=== PATIENT | female | born 1945 | race Caucasian/White ===

== ENCOUNTER → 2018-02-08 15:13 | Outpatient (CLI) | payer MEDICARE, OTHER, SELFPAY | PROVIDERS: Family Provider Family Medicine; PCP Family Medicine; Visit Provider Nurse Practitioner Adult Health | DX: R05 Cough (principal) | CPT/HCPCS: 87070; 87205 ==

== ENCOUNTER → 2018-08-10 14:21 | Outpatient (CLI) | payer MEDICARE, OTHER, SELFPAY ==
[2016-02-28 22:53] VITALS: BMI 24.0
[2018-08-10 15:26] LABS: Hematocrit 42.5 % (37-47); Hemoglobin 13.6 g/dl (12.0-15.0); Mean Corpuscular Hgb 28.6 pg (27.0-32.0); Mean Corpuscular Volume 89.3 fL (81-99); Mean Platelet Vol. 9.4 fl (6.2-12.0); Platelet Count 173 K/mm3 (150-450); RBC Distribution Width CV 14.4 % (11.6-14.6); RBC Distribution Width SD 46.5 fl (35.1-43.9); Red Blood Count 4.76 M/mm3 (4.2-5.4); White Blood Count 4.9 K/mm3 (4.4-11.0)
[2018-08-10 15:29] LABS: Scan Indicated on CBC? Y/N NO
[2018-08-10 15:49] LABS: AST(SGOT) 27 U/L (15-37); Alanine Aminotransfer ALT/SGPT 29 U/L (13-56); Albumin, Serum 4.1 g/dL (3.2-5.0); Alkaline Phosphatase 72 U/L (45-117); Anion Gap 6 (5-15); BUN 9 mg/dL (7-18); BUN/Creat Ratio 13.9 RATIO (10-20); Bilirubin, Direct 0.24 mg/dL (0.00-0.30); Calcium,Total 9.2 mg/dL (8.5-10.1); Chloride 103 mmol/L (98-107); Creatinine, Serum 0.65 mg/dL (0.55-1.02); EST Glomerular Filtration Rate 95 mL/min (>60); Est Glom Filt Rate - Afr Amer 115 mL/min (>60); Glucose 92 mg/dL (74-106); Potassium 4.2 mmol/L (3.5-5.1); Protein, Total 7.1 g/dL (6.4-8.2); Sodium Level 138 mmol/L (136-145); Thyroid Stim Hormone (TSH) 2.68 uIU/mL (0.358-3.74)
[2018-08-10 16:23] LABS: Vitamin D,25 Hydroxy 35.9 ng/mL (29.95-100.01)
== END ==
PROVIDERS: Family Provider Family Medicine; PCP Family Medicine; Referring Provider Family Medicine; Visit Provider Family Medicine
DX: M85.80 Other specified disorders of bone density and structure, unspecified site (principal); J44.9 Chronic obstructive pulmonary disease, unspecified; E88.01 Alpha-1-antitrypsin deficiency
CPT/HCPCS: 36415; 80048; 80076; 82306; 84443; 85027

== ENCOUNTER 2019-03-10 20:16 | Inpatient (IN) | payer MEDICARE, OTHER, SELFPAY ==
[2019-03-10] VITALS (8 sets, daily range): BP systolic 125–167; BP diastolic 72–105; PULSE 106–122; RESP 18–26; TEMP 36.9–38.2; O2SAT 91–97; BMI 23.9
--- NOTE | 2019-03-10 21:14 | EKG12_ITS ---
Test Reason : DYSRHYTHMIA Blood Pressure : / mmHG Vent. Rate : 111 BPM Atrial Rate : 111 BPM P-R Int : 152 ms QRS Dur : 084 ms QT Int : 320 ms P-R-T Axes : 074 058 067 degrees QTc Int : 435 ms Sinus tachycardia Otherwise normal ECG Confirmed by WENDY LAKE, ANTONIO ([id number]), design editor SHAHEEN DAILEY ([id number] on 03/15/2019 9:39:59 AM Referred By: ANDREWS Confirmed By:MRAEK NGUYEN MD
--- NOTE | 2019-03-10 21:22 | ED.VIS.GEN ---
History of Present Illness Chief Complaint: Shortness of Breath Informant: Patient Onset: Today Context: Gradual Onset Timing: Continuous Narrative: Patient is a 74-year-old female with history of alpha-1 antitrypsin deficiency presenting from home with increased shortness of breath and myalgias. Patient states her symptoms started suddenly today. She states she has body aches all over especially in her bilateral shoulders. She denies any associated cough. She denies any associated chest pain. She did have some mild nausea earlier today but no vomiting. She states she had normal bowel habits. She is concerned that she might have an infection. She is unaware of having a fever, but does feel cold. Patient denies associated abdominal pain or urinary symptoms. She states she does feel very tired. She denies any other complaints at this time. Past Medical History - Allergies and Home Meds Allergies/Adverse Reactions: Allergies latex Allergy (Verified 02/28/16 18:50) Rash Primary Care Physician: Nuno Roberts MD [Primary Care Provider] - Past Medical History: - - COPD, alpha 1 antitrypsin deficiency Surgical History: no surgical history Smoking Status: Former smoker - Family History Maternal Family History: Reports: Cancer Paternal Family History: Reports: Heart Disease Review of Systems All systems negative except as indicated General: Reports: Chills, Fever, Malaise Respiratory: Reports: Dyspnea Gastrointestinal: Reports: Nausea Physical Exam Vital Signs/Narrative: Vital Signs Temp Pulse Resp BP Pulse Ox 03/10/19 20:19 99.4 F H 112 H 26 H 146/88 H 95 03/10/19 20:17 99.4 F H 116 H 22 H 125/105 H 95 Inital Vital Signs reviewed: Yes General: Well nourished, Well developed, No Acute Distress Head: Normocephalic, Atraumatic Eyes: Perrl, EOMI ENT: Moist mucous membranes, No rhinorrhea Neck: Supple, Nontender Cardiovascular: Regular rhythm, No murmurs, Tachycardia Respiratory: Chest nontender, - - Tachypnea, diminished and coarse breath sounds bilaterally Abdomen: Soft, Nontender, Nondistended, Normal bowel sounds. Negative for: Garcia's sign Back: Nontender, Normal Inspection Extremities: Nontender, No edema Skin: Normal color, No rash Neurological: Alert, Oriented x3, Cranial nerves II-XII grossly intact, Normal Strength, Normal Sensation Psychological: Normal affect, Normal Mood Diagnostic/Tx/Re-eval Chest X-Ray - ED: 2 View, Read by ED Physician, Read by Radiologist, No Acute Disease Clinical Impression(s) from Imaging Studies Chest X-Ray 03/10/19 21:45 IMPRESSION: Severe hyperexpansion and diffuse emphysematous changes. Stable chronic fibrosis of the lingula. Negative for new consolidation, focal atelectasis or a substantial pleural effusion. Normal cardiac size. Atherosclerotic changes of the thoracic aorta. Electronically Signed: Shila Bocanegra MD at 22:07 EDT , Service support , Abdomen/Pelvis CT 03/10/19 22:44 IMPRESSION: Severe fibrotic COPD. Cholelithiasis. Distended gallbladder. Suboptimal evaluation of the GI tract without oral contrast. Cannot exclude enteritis or colitis. Electronically Signed: Lance White MD at 23:33 EDT , Service support , Laboratory Data 03/10/19 03/10/19 03/10/19 21:27 21:27 21:27 WBC 10.7 RBC 5.17 Hgb 14.5 Hct 44.7 MCV 86.5 MCH 28.0 MCHC 32.4 RDW Std Deviation 46.2 H RDW Coeff of Penny 14.6 Plt Count 161 MPV 9.4 Immature Gran % (Auto) 0.500 Neut % (Auto) 77.7 H Lymph % (Auto) 11.1 L [place] % (Auto) 10.1 H Eos % (Auto) 0.3 Baso % (Auto) 0.3 Absolute Neuts (auto) 8.3 H Absolute Lymphs (auto) 1.19 Nucleated RBC % 0 PT 13.4 INR 1.0 APTT 29.3 Sodium 140 Potassium 3.8 Chloride 103 Carbon Dioxide 31.0 Anion Gap 6 BUN 8 Creatinine 0.66 Estim Creat Clear Calc 40.83 Est GFR (MDRD) Af Amer 112 Est GFR (MDRD) Non-Af 92 BUN/Creatinine Ratio 12.0 Glucose 109 H Lactic Acid Calcium 9.6 Total Bilirubin 1.70 H AST 24 ALT 26 Alkaline Phosphatase 90 Total Protein 7.4 Albumin 4.1 Globulin 3.3 Albumin/Globulin Ratio 1.2 Urine Color Urine Clarity Urine pH Ur Specific [place] Urine Protein Urine Glucose (UA) Urine Ketones Urine Occult Blood Urine Nitrite Urine Bilirubin Urine Urobilinogen Ur Leukocyte Esterase Urine RBC Urine WBC Ur Squamous Epith Cells Urine Bacteria Urine Mucus 03/10/19 03/10/19 21:27 21:45 WBC RBC Hgb Hct MCV MCH MCHC RDW Std Deviation RDW Coeff of Penny Plt Count MPV Immature Gran % (Auto) Neut % (Auto) Lymph % (Auto) [place] % (Auto) Eos % (Auto) Baso % (Auto) Absolute Neuts (auto) Absolute Lymphs (auto) Nucleated RBC % PT INR APTT Sodium Potassium Chloride Carbon Dioxide Anion Gap BUN Creatinine Estim Creat Clear Calc Est GFR (MDRD) Af Amer Est GFR (MDRD) Non-Af BUN/Creatinine Ratio Glucose Lactic Acid 0.9 Calcium Total Bilirubin AST ALT Alkaline Phosphatase Total Protein Albumin Globulin Albumin/Globulin Ratio Urine Color Straw Urine Clarity Clear Urine pH 7.0 Ur Specific [place] 1.010 Urine Protein Negative Urine Glucose (UA) Normal Urine Ketones 5 H Urine Occult Blood 10 H Urine Nitrite Negative Urine Bilirubin Negative Urine Urobilinogen Normal Ur Leukocyte Esterase 500 H Urine RBC 0-5 SEEN Urine WBC 0-5 SEEN Ur Squamous Epith Cells 0-5 SEEN Urine Bacteria 0 SEEN Urine Mucus 0 SEEN - Rhythm Strip Rhythm Strip: Sinus Tach Rate: 111 Ectopy: None - EKG Initial EKG Interpretation: Sinus Tachycardia, - - Sinus tachycardia at a rate of 111 Normal intervals Normal axis Normal ST segments - Medical Decision Making Patient is evaluated for shortness of breath chills and myalgias. She appears nontoxic but is tachycardic and tachypneic. Patient has diminished breath sounds but otherwise has a nonfocal exam. Patient's presentation is concerning for infection and she does have a fever in the emergency room. Patient does meet sirs criteria with fever, tachycardia and tachypnea. Lactate is normal. Patient has 500 leukoesterase in the urine concerning for urinary tract infection. Urine culture and blood cultures are pending. She is given 1 L of IV fluid in the emergency room. Patient's lab work also shows an elevated total bilirubin. On repeat exam she still does not have any abdominal pain but she did report an episode of nausea earlier today. CT of the abdomen pelvis is obtained looking for renal pathology as well as any biliary pathology. Patient is instantly found to have gallstones and states she does have a history of this is been followed by Dr. Sanchez. She is not a surgical candidate secondary to her poor lung function. In addition she is not having any biliary colic at this time. Patient is ordered IV Rocephin for presumed urinary tract infection. She will be admitted for further monitoring. Patient is stable in the emergency room and stable for a general medical floor at time of disposition. She is on her baseline oxygen. Chest x-ray does not show an obvious respiratory cause. Discussed with hospitalist, Dr. Rao, who states he will order respiratory viral panel as well. ED Disposition - Plan for ED Patient: Disposition: Home or Assisted Living Diagnosis: UTI (urinary tract infection), Sepsis Referrals: Nuno Roberts MD [Primary Care Provider] -
[2019-03-10 21:44] LABS: Absolute Lymphocyte Count 1.19 X10^3/uL (0.83-4.51); Absolute Neutrophil Count 8.3 X10^3/uL (2.0-7.7); Basophil# 0.03 X10^3/uL; Basophil% 0.3 % (0-1); Eosinophil# 0.03 X10^3/uL; Eosinophils% 0.3 % (0-5); Hematocrit 44.7 % (37-47); Hemoglobin 14.5 g/dL (12.0-15.0); Lymphocyte # 1.19 X10^3/ul (4.0); Lymphocyte % 11.1 % (19-41); Mean Corp Hgb Conc 32.4 g/dL (32-36); Mean Corpuscular Volume 86.5 fL (81-99); Mean Platelet Vol. 9.4 fl (6.2-12.0); Monocyte# 1.08 X10^3/uL; Monocyte% 10.1 % (0-10); NRBC Flagged by Analyzer 0 % (0-5); Neutrophil # 8.32 X10^3/uL (2.7-7.7); Neutrophil % 77.7 % (47-70); Platelet Count 161 K/mm3 (150-450); RBC Distribution Width CV 14.6 % (11.6-14.6); RBC Distribution Width SD 46.2 fl (35.1-43.9); Red Blood Count 5.17 M/mm3 (4.2-5.4); White Blood Count 10.7 K/mm3 (4.4-11.0)
[2019-03-10] MEDS: 0.9% Normal Saline 1,000 ML 999 ML IV (21:45)
--- NOTE | 2019-03-10 21:45 | RAD_ITS ---
STUDY: X-RAY CHEST REASON FOR EXAM: Female, 74 years old. Shortness of breath and weakness. TECHNIQUE: 2 views COMPARISON: Prior chest radiograph from May 20, 2017 FINDINGS: Marked hyperexpansion and diffuse changes of bullous emphysema. Chronic fibrotic changes of the lingula. Negative for new consolidation or pleural effusion. Normal size heart. Normal mediastinum and bee. Normal visualized pulmonary arteries. There is atherosclerotic tortuosity of the aortic arch and descending thoracic aorta. There are diffuse degenerative changes of the visualized thoracic spine with increased kyphosis. Normal visualized ribs, clavicles, and shoulders. There is no demonstrated abnormality of the visualized soft tissue structures of the upper abdomen. RAD/Chest PA and Lateral IMPRESSION: Severe hyperexpansion and diffuse emphysematous changes. Stable chronic fibrosis of the lingula. Negative for new consolidation, focal atelectasis or a substantial pleural effusion. Normal cardiac size. Atherosclerotic changes of the thoracic aorta. Electronically Signed: Shila Bocanegra MD at 22:07 EDT , Service support ,
[2019-03-10 21:54] LABS: Bacteria 0 SEEN /hpf (None Seen); Mucous, Urine 0 SEEN /hpf (<or=2+)
[2019-03-10 21:56] LABS: Prothrombin Time (Protime)PT. 13.4 SECONDS (11.7-14.9)
[2019-03-10 21:57] LABS: Partial Thromboplast Time 29.3 Seconds (24.1-36.2)
[2019-03-10 21:59] LABS: Color, Urine Straw (Yellow); Glucose, Dipstick Normal (Normal); Ketone-Dipstick 5 mg/dl (Negative); Leukocyte Esterase-Dipstick 500 /ul (Negative); Nitrite-Dipstick Negative (Negative); Occult Blood-Urine 10 /ul (Negative); Protein-Dipstick Negative (Negative); Urine Bilirubin Dipstick Negative (Negative); Urine Clarity Clear (Clear); Urine Urobilinogen Normal (Normal)
[2019-03-10 22:03] LABS: ALB/GLOB Ratio 1.2 RATIO (0.9-2.4); AST(SGOT) 24 U/L (15-37); Alanine Aminotransfer ALT/SGPT 26 U/L (13-56); Albumin, Serum 4.1 g/dL (3.2-5.0); Alkaline Phosphatase 90 U/L (45-117); Anion Gap 6 (5-15); BUN 8 mg/dL (7-18); Calcium,Total 9.6 mg/dL (8.5-10.1); Chloride 103 mmol/L (98-107); Creatinine, Serum 0.66 mg/dL (0.55-1.02); EST Glomerular Filtration Rate 92 mL/min (>60); Est Glom Filt Rate - Afr Amer 112 mL/min (>60); Estimated Creatinine Clearance 40.83 ml/min; Globulin 3.3 g/dL (2.2-4.2); Glucose 109 mg/dL (74-106); Potassium 3.8 mmol/L (3.5-5.1); Protein, Total 7.4 g/dL (6.4-8.2); Sodium Level 140 mmol/L (136-145)
[2019-03-10 22:05] LABS: Red Blood Cells-Urine 0-5 SEEN /hpf (0-5); Squamous Epithelial Cells - UA 0-5 SEEN /hpf (5-10)
[2019-03-10 22:06] LABS: White Blood Cells 0-5 SEEN /hpf (0-5)
[2019-03-10 22:15] LABS: Lactic Acid 0.9 mmol/L (0.4-2.0)
--- NOTE | 2019-03-10 22:44 | CT_ITS ---
STUDY: CT ABDOMEN AND PELVIS WITH CONTRAST REASON FOR EXAM: Female, 74 years old. Elevated bilirubin. RADIATION DOSAGE (If Supplied By Facility): CTDIvol = ( 12.12 ) mGy, DLP = ( 517.93 ) mGycm TECHNIQUE: Transaxial images were obtained from the dome of the diaphragm to the symphysis pubis without oral contrast. IV Isovue 300 100 was administered. Sagittal and coronal images were reconstructed. Individualized dose optimization techniques were used for this CT. COMPARISON: None. FINDINGS: Limited views through the lower chest show evidence of severe fibrotic COPD. Normal liver. There are multiple gallstones. Normal spleen. Normal pancreas. Normal bilateral adrenal glands. Normal right kidney. Normal left kidney. Evaluation of the GI tract is limited by absence of oral contrast. Cannot exclude stomach wall thickening. No dilated loops of bowel or evidence for obstruction. Cannot exclude segmental thickening of the carranza of the small or large bowel. Cannot exclude enteritis or colitis. Moderate diffuse fecal retention. Diverticulosis without definite diverticulitis. Appendix within normal limits. Normal abdominal aorta. Normal inferior vena cava. Normal retroperitoneum. Normal urinary bladder. Normal visualized uterus. Normal abdominal wall. There are diffuse degenerative changes of the visualized lumbar spine. CT/Abdomen/Pelvis W IV Cont ONLY IMPRESSION: Severe fibrotic COPD. Cholelithiasis. Distended gallbladder. Suboptimal evaluation of the GI tract without oral contrast. Cannot exclude enteritis or colitis. Electronically Signed: Lance White MD at 23:33 EDT , Service support ,
--- NOTE | 2019-03-10 23:40 | PCM.HP.STD ---
Problem List (1) Sepsis Status: Acute (2) UTI (urinary tract infection) Status: Acute (3) Respiratory failure with hypoxia Status: Acute (4) [id number] deficiency Status: Chronic (5) COPD (chronic obstructive pulmonary disease) Status: Chronic History of Present Illness Date of Admission: 03/11/19 Chief Complaint: Shortness of breath started today The patient is a 74 year old F with multiple comorbidities including alpha-1 antitrypsin deficiency with COPD on 3 L of home oxygen came to ER with shortness of breath, respiratory distress and fever started morning on the day of admission. Patient states chest congestion with mucus but not able to bring up. She also does not have cough usually she has chronic cough. As per ER physician, she also had body aches all over, more in bilateral shoulders. No chest pain. Denies nausea vomiting or abdominal pain. Denies increased frequency, urgency or burning micturition. In ER, she was found to have temperature 100.7, 99.4 Fahrenheit, tachycardia 117 bpm, respiratory 24 pulse ox 91% on 3 L of oxygen. Chest x-ray shows mainly chronic changes of COPD with chronic fibrosis of lingula. No new consolidation. Further CT abdomen was done which shows multiple gallstones. She has history of chronic cholecystitis, first on about 8 years ago and last one perhaps more than 2 to 3 years ago, she does not remember. She was seen by Dr. Richardson in the past and deemed high risk for cholecystectomy. UA positive of LE 500, WBC 0-5 cells. Nitrite negative. No bacteria. Past Medical History Past Medical History (Chronic Problems): Chronic Problems [id number] deficiency (Chronic) COPD (chronic obstructive pulmonary disease) (Chronic) Allergies latex Allergy (Verified 02/28/16 18:50) Rash Home Medications: Ambulatory Orders Medication Instructions Recorded Albuterol Aerosols [Ventolin 2.5 mg INHALATION Q4H PRN PRN 02/28/16 Aerosols] Albuterol Inhaler [Ventolin Hfa] 1 - 2 puff INHALATION Q4H PRN PRN 02/28/16 Escitalopram Oxalate [Lexapro] 10 mg PO DAILY 02/28/16 Roflumilast [Daliresp] 500 mcg PO DAILY 02/28/16 Azithromycin 250 mg PO DAILY 03/10/19 Fluticasone/Umeclidin/Vilanter 1 inhaler INHALATION DAILY 03/10/19 [Mayte Mauricio 100-62.5-25] Surgical History: no surgical history Smoking Status: Former smoker - *Family History Maternal History Items: Cancer - Gallbladder cancer Paternal History Items: Heart Disease Review of Systems Constitutional: Reports: Chills, Fever, Malaise, Weakness HEENT: Denies: Head Aches, Sinus Congestion, Sinus Drainage Cardiovascular: Denies: Chest Pain, Palpitations Respiratory: Reports: Shortness of breath at rest, Wheezing. Denies: Cough, Sputum production Gastrointestinal: Denies: Abdominal Pain, Nausea, Vomiting Genitourinary: Denies: Dysuria, Frequency, Urgency Musculoskeletal: Denies: Joint Pain, Joint Tenderness Skin: Denies: Rash, Wounds Neurological: Denies: Numbness, Tingling, Focal weakness Psychiatric: Reports: Anxiety. Denies: Depression, Homicidal Ideations, Suicidal Ideations Hematologic/ Lymphatic: Denies: Easy Bruising, Easy Bleeding VTE Information - Inpt Only VTE Present on Admission: No VTE Mechan Device Prophylaxis: None VTE Pharm Prophylaxis ordered?: Yes Patient Problems: Active and Suspected Problems UTI (urinary tract infection) (Acute) Sepsis (Acute) - Physical Exam General: Alert, Oriented x3, Cooperative HEENT: Atraumatic, PERRLA, EOMI, Normocephalic Oral: Dry Mucosa Neck: Supple, No JVD, Negative Carotid Bruits Lungs: Diminished - Air entry severely diminished in all lung fernandez., Rhonchi, Short of Breath, Tachypneic, Wheezes Cardiovascular: Regular Rhythm, Normal S1, Normal S2, No murmurs, Tachycardic Abdomen: Bowel Sounds Present, Soft, Non Tender, Non-Distended Extremities: No edema, Capillary Refill Less than 3 Seconds Skin: No rashes, No breakdown Musculoskeletal: No Tenderness to Palpation of Joints or Extremities, Arthritic Changes Neurological: Cranial nerves II-XII grossly intact, Deep Tendon Reflexes 2+/4 and Symmetrical, Neuro grossly intact Psych/Mental Status: Normal Affect, Appropriate Vital Signs Temp Pulse Resp BP Pulse Ox 98.5 F 122 H 22 H 167/88 H 97 03/10/19 23:23 03/10/19 23:23 03/10/19 23:23 03/10/19 23:23 10/11/19 23:23 Oxygen Flow Rate (L/min) 3 Oxygen Delivery Method Room Air Weight: 135 lb Body Mass Index (BMI) 23.9 Intake and Output for Last 24 Hours 03/09/19 03/10/19 03/11/19 23:59 23:59 23:59 Intake Total 1000 / 1000 Balance 1000 / 1000 Laboratory Tests Past 24 Hrs 03/10/19 03/10/19 03/10/19 21:27 21:27 21:27 WBC 10.7 RBC 5.17 Hgb 14.5 Hct 44.7 MCV 86.5 MCH 28.0 MCHC 32.4 RDW Std Deviation 46.2 H RDW Coeff of Penny 14.6 Plt Count 161 MPV 9.4 Immature Gran % (Auto) 0.500 Neut % (Auto) 77.7 H Lymph % (Auto) 11.1 L [place] % (Auto) 10.1 H Eos % (Auto) 0.3 Baso % (Auto) 0.3 Absolute Neuts (auto) 8.3 H Absolute Lymphs (auto) 1.19 Nucleated RBC % 0 PT 13.4 INR 1.0 APTT 29.3 Sodium 140 Potassium 3.8 Chloride 103 Carbon Dioxide 31.0 Anion Gap 6 BUN 8 Creatinine 0.66 Estim Creat Clear Calc 40.83 Est GFR (MDRD) Af Amer 112 Est GFR (MDRD) Non-Af 92 BUN/Creatinine Ratio 12.0 Glucose 109 H Lactic Acid Calcium 9.6 Total Bilirubin 1.70 H AST 24 ALT 26 Alkaline Phosphatase 90 Total Protein 7.4 Albumin 4.1 Globulin 3.3 Albumin/Globulin Ratio 1.2 Urine Color Urine Clarity Urine pH Ur Specific [place] Urine Protein Urine Glucose (UA) Urine Ketones Urine Occult Blood Urine Nitrite Urine Bilirubin Urine Urobilinogen Ur Leukocyte Esterase Urine RBC Urine WBC Ur Squamous Epith Cells Urine Bacteria Urine Mucus 03/10/19 03/10/19 21:27 21:45 WBC RBC Hgb Hct MCV MCH MCHC RDW Std Deviation RDW Coeff of Penny Plt Count MPV Immature Gran % (Auto) Neut % (Auto) Lymph % (Auto) [place] % (Auto) Eos % (Auto) Baso % (Auto) Absolute Neuts (auto) Absolute Lymphs (auto) Nucleated RBC % PT INR APTT Sodium Potassium Chloride Carbon Dioxide Anion Gap BUN Creatinine Estim Creat Clear Calc Est GFR (MDRD) Af Amer Est GFR (MDRD) Non-Af BUN/Creatinine Ratio Glucose Lactic Acid 0.9 Calcium Total Bilirubin AST ALT Alkaline Phosphatase Total Protein Albumin Globulin Albumin/Globulin Ratio Urine Color Straw Urine Clarity Clear Urine pH 7.0 Ur Specific [place] 1.010 Urine Protein Negative Urine Glucose (UA) Normal Urine Ketones 5 H Urine Occult Blood 10 H Urine Nitrite Negative Urine Bilirubin Negative Urine Urobilinogen Normal Ur Leukocyte Esterase 500 H Urine RBC 0-5 SEEN Urine WBC 0-5 SEEN Ur Squamous Epith Cells 0-5 SEEN Urine Bacteria 0 SEEN Urine Mucus 0 SEEN Assessment/Plan All Active Problems UTI (urinary tract infection) (Acute) Sepsis (Acute) Respiratory failure with hypoxia (Acute) The patient is a 74 year old F with multiple comorbidities including alpha-1 antitrypsin deficiency with COPD on 3 L of home oxygen came to ER with shortness of breath, respiratory distress and fever started morning on the day of admission. Patient states chest congestion with mucus but not able to bring up. In ER, she was found to have temperature 100.7, 99.4 Fahrenheit, tachycardia 117 bpm, respiratory 24 pulse ox 91% on 3 L of oxygen. Chest x-ray shows mainly chronic changes of COPD with chronic fibrosis of lingula. No new consolidation. Further CT abdomen was done which shows multiple gallstones. She has history of chronic cholecystitis, first on about 8 years ago and last one perhaps more than 2 to 3 years ago, she does not remember. She was seen by Dr. Richardson in the past and deemed high risk for cholecystectomy. 1. SIRS (fever, tachypnea, tachycardia with borderline leukocytosis) possible secondary to COPD with viral bronchitis/UTI: Patient is being admitted on MedSurg floor. Started on IV Rocephin and Zithromax. Blood cultures x2, urine culture, respiratory panel, MRSA nasal screen, urinary antigens for Legionella and Streptococcus, sputum culture ordered. Lactic acid normal. UA positive of LE 500, WBC 0-5 cells. Nitrite negative. No bacteria. 2. Chronic hypoxic respiratory failure secondary to COPD exacerbation with history of alpha-1 antitrypsin deficiency: BiPAP if needed. ABG ordered. Currently patient is on 3 L of oxygen which is normal baseline. Previous ABG of 04/21/2016 shows 7.42/39/50. Started bronchodilator, DuoNeb, IV Solu-Medrol,, incentive spirometry and chest physiotherapy/bronchopulmonary hygiene. She follows Dr. Taylor. 3. Chronic cholelithiasis with history of chronic ascites: Patient does not have abdominal pain. CT abdomen reviewed. Follow Dr. Hu as an outpatient. 4. DVT prophylaxis: On Lovenox 40 g subcu daily. Laboratory Results 03/10/19 21:27: WBC 10.7, RBC 5.17, Hgb 14.5, Hct 44.7, MCV 86.5, MCH 28.0, MCHC 32.4, RDW Std Deviation 46.2 H, RDW Coeff of Penny 14.6, Plt Count 161, MPV 9.4, Immature Gran % (Auto) 0.500, Neut % (Auto) 77.7 H, Lymph % (Auto) 11.1 L, [place] % (Auto) 10.1 H, Eos % (Auto) 0.3, Baso % (Auto) 0.3, Absolute Neuts (auto) 8.3 H, Absolute Lymphs (auto) 1.19, Nucleated RBC % 0 03/10/19 21:27: PT 13.4, INR 1.0, APTT 29.3 03/10/19 21:27: Sodium 140, Potassium 3.8, Chloride 103, Carbon Dioxide 31.0, Anion Gap 6, BUN 8, Creatinine 0.66, Estim Creat Clear Calc 40.83, Est GFR (MDRD) Af Amer 112, Est GFR (MDRD) Non-Af 92, BUN/Creatinine Ratio 12.0, Glucose 109 H, Calcium 9.6, Total Bilirubin 1.70 H, AST 24, ALT 26, Alkaline Phosphatase 90, Total Protein 7.4, Albumin 4.1, Globulin 3.3, Albumin/Globulin Ratio 1.2 03/10/19 21:27: Lactic Acid 0.9 03/10/19 21:45: Urine Color Straw, Urine Clarity Clear, Urine pH 7.0, Ur Specific [place] 1.010, Urine Protein Negative, Urine Glucose (UA) Normal, Urine Ketones 5 H, Urine Occult Blood 10 H, Urine Nitrite Negative, Urine Bilirubin Negative, Urine Urobilinogen Normal, Ur Leukocyte Esterase 500 H, Urine RBC 0-5 SEEN, Urine WBC 0-5 SEEN, Ur Squamous Epith Cells 0-5 SEEN, Urine Bacteria 0 SEEN, Urine Mucus 0 SEEN Clinical Impression(s) from Imaging Studies Chest X-Ray 10/11/19 21:45 IMPRESSION: Severe hyperexpansion and diffuse emphysematous changes. Stable chronic fibrosis of the lingula. Negative for new consolidation, focal atelectasis or a substantial pleural effusion. Normal cardiac size. Atherosclerotic changes of the thoracic aorta. Abdomen/Pelvis CT 03/10/19 22:44 IMPRESSION: Severe fibrotic COPD. Cholelithiasis. Distended gallbladder. Suboptimal evaluation of the GI tract without oral contrast. Cannot exclude enteritis or colitis. Code Visit Inpatient E&M: 16417 Init Hosp L3
[2019-03-10] MEDS: Ceftriaxone 1 GM/50 ML BAG IV (23:59)
[2019-03-11] VITALS (13 sets, daily range): BP systolic 131–158; BP diastolic 63–91; PULSE 78–105; RESP 12–22; TEMP 36.4–37.6; O2SAT 95–98; BMI 22.3
--- NOTE | 2019-03-11 01:20 | NURSING ---
Pt will look up the last date she had the flu vaccine tomorrow. She said she is tired right now and doesn't want to do it.
[2019-03-11] MEDS: 0.9% Normal Saline 1,000 ML 75 ML IV (01:46)
[2019-03-11] MEDS: Ipratropium/Albuterol Sulfate 3 ML AMPUL.NEB INHALATION ×6 (03:45→22:17)
[2019-03-11 07:00] LABS: Bedside Glucose 102 mg/dL (70-110)
[2019-03-11 07:32] LABS: Absolute Lymphocyte Count 2.78 X10^3/uL (0.83-4.51); Basophil# 0.05 X10^3/uL; Basophil% 0.4 % (0-1); Eosinophil# 0.16 X10^3/uL; Eosinophils% 1.4 % (0-5); Hematocrit 38.6 % (37-47); Hemoglobin 12.5 g/dL (12.0-15.0); Lymphocyte # 2.78 X10^3/ul (4.0); Lymphocyte % 24.8 % (19-41); Mean Corp Hgb Conc 32.4 g/dL (32-36); Mean Corpuscular Volume 86.4 fL (81-99); Mean Platelet Vol. 9.9 fl (6.2-12.0); Monocyte% 10.7 % (0-10); NRBC Flagged by Analyzer 0 % (0-5); Neutrophil # 6.98 X10^3/uL (2.7-7.7); Neutrophil % 62.3 % (47-70); Platelet Count 135 K/mm3 (150-450); RBC Distribution Width CV 14.7 % (11.6-14.6); RBC Distribution Width SD 46.9 fl (35.1-43.9); Red Blood Count 4.47 M/mm3 (4.2-5.4); White Blood Count 11.2 K/mm3 (4.4-11.0)
--- NOTE | 2019-03-11 08:04 | PCM.PN.HOSP ---
Patient Problems: Active and Suspected Problems UTI (urinary tract infection) (Acute) Sepsis (Acute) Subjective: CC follow-up COPD/pneumonia Patient is a 74-year-old lady with history of COPD secondary to alpha-1 antitrypsin deficiency on baseline oxygen 3 L at home presented with progressive shortness of breath and assessment of COPD exacerbation with superimposed pneumonia was made admitted to regular nursing for further management Objective: GENERAL: cooperative frail looking HEENT: Atraumatic; EYES; Anicteric, Normal Conjunctiva NECK; supple, normal thyroid, RESPIRATORY: Diminished to auscultation CARDIOVASCULAR: Regular S1 S2, GI: soft, non-tender, normoactive bowel sounds, : No Renal angle tenderness; EXTREMITIES: No edema, no cyanosis. MUSCULOSKELETAL: No Joint Tenderness; NEURO: Awake; no lateralizing signs. SKIN: No Rash PSYCH; Normal affect Vitals/I&O's: Vital Signs Temp Pulse Resp BP Pulse Ox 99.6 F H 100 20 H 147/79 H 97 03/11/19 03:18 03/11/19 07:33 03/11/19 07:33 03/11/19 03:18 03/11/19 07:33 Oxygen Flow Rate (L/min) 3 Oxygen Delivery Method Nasal Cannula Weight: 57.2 kg Body Mass Index (BMI) 22.3 Intake and Output for Last 24 Hours 03/09/19 03/10/19 03/11/19 23:59 23:59 23:59 Intake Total 1000 / 1000 50 / 50 Balance 1000 / 1000 50 / 50 Microbiology Past 72 Hours 03/10/19 21:45 Urine, Clean Catch Legionella Antigen - Final 03/10/19 21:45 Urine, Clean Catch Streptococcus pneumoniae Antigen (M - Final Streptococcus pneumonia Ag Laboratory Results 03/10/19 21:27: WBC 10.7, RBC 5.17, Hgb 14.5, Hct 44.7, MCV 86.5, MCH 28.0, MCHC 32.4, RDW Std Deviation 46.2 H, RDW Coeff of Penny 14.6, Plt Count 161, MPV 9.4, Immature Gran % (Auto) 0.500, Neut % (Auto) 77.7 H, Lymph % (Auto) 11.1 L, Spink % (Auto) 10.1 H, Eos % (Auto) 0.3, Baso % (Auto) 0.3, Absolute Neuts (auto) 8.3 H, Absolute Lymphs (auto) 1.19, Nucleated RBC % 0 03/10/19 21:27: PT 13.4, INR 1.0, APTT 29.3 03/10/19 21:27: Sodium 140, Potassium 3.8, Chloride 103, Carbon Dioxide 31.0, Anion Gap 6, BUN 8, Creatinine 0.66, Estim Creat Clear Calc 40.83, Est GFR (MDRD) Af Amer 112, Est GFR (MDRD) Non-Af 92, BUN/Creatinine Ratio 12.0, Glucose 109 H, Calcium 9.6, Total Bilirubin 1.70 H, AST 24, ALT 26, Alkaline Phosphatase 90, Total Protein 7.4, Albumin 4.1, Globulin 3.3, Albumin/Globulin Ratio 1.2 03/10/19 21:27: Lactic Acid 0.9 03/10/19 21:45: Urine Color Straw, Urine Clarity Clear, Urine pH 7.0, Ur Specific [place] 1.010, Urine Protein Negative, Urine Glucose (UA) Normal, Urine Ketones 5 H, Urine Occult Blood 10 H, Urine Nitrite Negative, Urine Bilirubin Negative, Urine Urobilinogen Normal, Ur Leukocyte Esterase 500 H, Urine RBC 0-5 SEEN, Urine WBC 0-5 SEEN, Ur Squamous Epith Cells 0-5 SEEN, Urine Bacteria 0 SEEN, Urine Mucus 0 SEEN 03/11/19 06:18: WBC 11.2 H, RBC 4.47, Hgb 12.5, Hct 38.6, MCV 86.4, MCH 28.0, MCHC 32.4, RDW Std Deviation 46.9 H, RDW Coeff of Penny 14.7 H, Plt Count 135 L, MPV 9.9, Immature Gran % (Auto) 0.400, Neut % (Auto) 62.3, Lymph % (Auto) 24.8, Spink % (Auto) 10.7 H, Eos % (Auto) 1.4, Baso % (Auto) 0.4, Absolute Neuts (auto) 7.0, Absolute Lymphs (auto) 2.78, Nucleated RBC % 0 03/11/19 06:44: POC Glucose 102 03/11/19 07:05: Sodium Pending, Potassium Pending, Chloride Pending, Carbon Dioxide Pending, Anion Gap Pending, BUN Pending, Creatinine Pending, Est GFR (MDRD) Af Amer Pending, Est GFR (MDRD) Non-Af Pending, BUN/Creatinine Ratio Pending, Glucose Pending, Calcium Pending, Total Bilirubin Pending, AST Pending, ALT Pending, Alkaline Phosphatase Pending, Total Protein Pending, Albumin Pending, TSH Pending Current Medications Acetaminophen (Tylenol) 650 mg PO Q6H PRN PRN PRN Reason: Mild Pain (1-3)/Temp > 100.7 F Albuterol Sulfate (Ventolin Aerosols) 2.5 mg INHALATION Q2H PRN PRN PRN Reason: Shortness of Breath/Wheezing Albuterol/Ipratropium (Duoneb) 3 ml INHALATION Q4H.RT [facility] Last Admin: 03/11/19 07:33 Dose: 3 ml Documented by: Bisacodyl (Dulcolax) 10 mg RECTAL DAILY PRN PRN PRN Reason: Constipation Dextrose (D50w Syringe) 0 gm IV X1 PRN; Protocol PRN Reason: Hypoglycemia Enoxaparin Sodium (Lovenox) 40 mg SC DAILY [facility] Escitalopram Oxalate (Lexapro) 10 mg PO DAILY [facility] Glucagon () 1 mg IM .X1 PRN PRN Reason: Hypoglycemia Sodium Chloride () 1,000 mls @ 75 mls/hr IV .[id number] [facility] Stop: 03/11/19 14:45 Last Admin: 03/11/19 01:46 Dose: 75 mls/hr Documented by: Azithromycin 500 mg/ Dextrose 255 mls @ 250 mls/hr IV Q24 [facility] Stop: 03/13/19 11:02 Ceftriaxone Sodium (Rocephin) 1 gm in 50 mls @ 100 mls/hr IV Q24 [facility] Insulin Human Lispro (Humalog Kwikpen (Bkc)) 0 unit SC BIDCM [facility]; Protocol Last Admin: 03/11/19 06:46 Dose: Not Given Documented by: Melatonin (Melatonin) 3 mg PO QHS PRN PRN PRN Reason: INSOMNIA Methylprednisolone (Solu-Medrol) 40 mg IV Q8 [facility] Last Admin: 03/11/19 06:45 Dose: 40 mg Documented by: Morphine Sulfate () 2 mg IV Q3H PRN PRN PRN Reason: Severe pain (-03/09) Nutritional Formula (Lactose Free) (Glucerna Shake) 120 ml PO 4X/DAY ANY Oxycodone HCl (Oxyir) 5 mg PO Q4H PRN PRN PRN Reason: Moderate Pain (4-10) Polyethylene Glycol (Miralax) 17 gm PO DAILY ANY Prochlorperazine Edisylate (Compazine Iv) 5 mg IV Q4H PRN PRN PRN Reason: Breakthrough nausea/vomiting Senna/Docusate Sodium (Senokot-S, Roya-Colace) 2 tablet PO BID ANY Sodium Chloride () 5 - 15 ml IV UD PRN PRN Reason: SALINE FLUSH Throat Lozenges (Cepacol Sore Throat Lozenge) 1 lozenge MUCOUS MEM Q2H PRN PRN PRN Reason: Sore throat or cough Medical Necessity - Tobacco Use Smoking Status: Former smoker Assessment/Plan All Active Problems UTI (urinary tract infection) (Acute) Sepsis (Acute) Respiratory failure with hypoxia (Acute) Patient is a 74-year-old lady with history of COPD secondary to alpha-1 antitrypsin deficiency on baseline oxygen 3 L at home presented with progressive shortness of breath and assessment of COPD exacerbation with superimposed pneumonia was made admitted to regular nursing for further management 1. COPD with acute exacerbation ~Patient admitted to regular nursing floor managed with supplemental oxygen, bronchodilator treatment antibiotics as well as systemic steroids. 2. Suspected pneumonia ~ patient urine assay for strep came back positive subsequently started on Rocephin in addition to Zithromax which had been initiated on admission 3. Alpha-1 antitrypsin ~with subsequent COPD 4. Chronic hypoxic respiratory failure secondary to COPD ~ patient is on baseline 3 L of oxygen at home. Patient is followed by Dr. Taylor as outpatient 5. Cholelithiasis with distended gallbladder ~ Patient currently asymptomatic. Had apparently been evaluated previously was deemed to be a poor surgical candidate 6. Depression Patient is on SSRI did continue 7. DVT prophylaxis ~ on enoxaparin Advance planning; did discuss with the patient regarding advanced directives as well as CODE STATUS. Did explain the various scenarios involved ( FULL CODE, DNR CCA, DNR CCA with no intubation, and DNR CC and what each meant) patient elected to remain full code. She did agree to CPR and intubation if required.. Order was placed. Time spent on discussion 18 minutes. Active Medications Acetaminophen (Tylenol) 650 mg PO Q6H PRN PRN PRN Reason: Mild Pain (1-3)/Temp > 100.7 F Last Admin: 03/11/19 08:22 Dose: 650 mg Documented by: Albuterol Sulfate (Ventolin Aerosols) 2.5 mg INHALATION Q2H PRN PRN PRN Reason: Shortness of Breath/Wheezing Albuterol/Ipratropium (Duoneb) 3 ml INHALATION Q4H.RT [facility] Last Admin: 03/11/19 07:33 Dose: 3 ml Documented by: Bisacodyl (Dulcolax) 10 mg RECTAL DAILY PRN PRN PRN Reason: Constipation Dextrose (D50w Syringe) 0 gm IV X1 PRN; Protocol PRN Reason: Hypoglycemia Enoxaparin Sodium (Lovenox) 40 mg SC DAILY [facility] Last Admin: 03/11/19 09:36 Dose: 40 mg Documented by: Escitalopram Oxalate (Lexapro) 10 mg PO DAILY [facility] Last Admin: 03/11/19 09:36 Dose: 10 mg Documented by: Glucagon () 1 mg IM .X1 PRN PRN Reason: Hypoglycemia Sodium Chloride () 1,000 mls @ 75 mls/hr IV .[id number] [facility] Stop: 03/11/19 14:45 Last Infusion: 03/11/19 09:53 Dose: 0 mls/hr Documented by: Azithromycin 500 mg/ Dextrose 255 mls @ 250 mls/hr IV Q24 [facility] Stop: 03/13/19 11:02 Ceftriaxone Sodium (Rocephin) 1 gm in 50 mls @ 100 mls/hr IV Q24 [facility] Last Admin: 03/11/19 09:33 Dose: 100 mls/hr Documented by: Insulin Human Lispro (Humalog Kwikpen (Bkc)) 0 unit SC BIDCM [facility]; Protocol Last Admin: 03/11/19 06:46 Dose: Not Given Documented by: Melatonin (Melatonin) 3 mg PO QHS PRN PRN PRN Reason: INSOMNIA Methylprednisolone (Solu-Medrol) 40 mg IV Q8 [facility] Last Admin: 03/11/19 06:45 Dose: 40 mg Documented by: Morphine Sulfate () 2 mg IV Q3H PRN PRN PRN Reason: Severe pain (7-10/10) Nutritional Formula (Lactose Free) (Glucerna Shake) 120 ml PO 4X/DAY [facility] Last Admin: 03/11/19 09:33 Dose: 120 ml Documented by: Oxycodone HCl (Oxyir) 5 mg PO Q4H PRN PRN PRN Reason: Moderate Pain (4-6/10) Polyethylene Glycol (Miralax) 17 gm PO DAILY [facility] Last Admin: 03/11/19 09:36 Dose: 17 gm Documented by: Prochlorperazine Edisylate (Compazine Iv) 5 mg IV Q4H PRN PRN PRN Reason: Breakthrough nausea/vomiting Senna/Docusate Sodium (Senokot-S, Roya-Colace) 2 tablet PO BID [facility] Last Admin: 03/11/19 09:36 Dose: 2 tablet Documented by: Sodium Chloride () 5 - 15 ml IV UD PRN PRN Reason: SALINE FLUSH Throat Lozenges (Cepacol Sore Throat Lozenge) 1 lozenge MUCOUS MEM Q2H PRN PRN PRN Reason: Sore throat or cough Clinical Impression(s) from Imaging Studies Chest X-Ray 03/10/19 21:45 IMPRESSION: Severe hyperexpansion and diffuse emphysematous changes. Stable chronic fibrosis of the lingula. Negative for new consolidation, focal atelectasis or a substantial pleural effusion. Normal cardiac size. Atherosclerotic changes of the thoracic aorta. Electronically Signed: Shila Bocanegra MD at 22:07 EDT , Service support , Abdomen/Pelvis CT 03/10/19 22:44 IMPRESSION: Severe fibrotic COPD. Cholelithiasis. Distended gallbladder. Suboptimal evaluation of the GI tract without oral contrast. Cannot exclude enteritis or colitis. Electronically Signed: Lance White MD at 23:33 EDT , Service support , Code Visit Inpatient E&M: 94513 Subs Hosp L2 Procedures: 42081 Advncd Care Plan 30 Min
[2019-03-11 08:08] LABS: ALB/GLOB Ratio 1.2 RATIO (0.9-2.4); AST(SGOT) 20 U/L (15-37); Alanine Aminotransfer ALT/SGPT 21 U/L (13-56); Albumin, Serum 3.3 g/dL (3.2-5.0); Alkaline Phosphatase 71 U/L (45-117); Anion Gap 6 (5-15); BUN 6 mg/dL (7-18); BUN/Creat Ratio 12.9 RATIO (10-20); Calcium,Total 8.3 mg/dL (8.5-10.1); Chloride 108 mmol/L (98-107); Creatinine, Serum 0.46 mg/dL (0.55-1.02); EST Glomerular Filtration Rate 139 mL/min (>60); Est Glom Filt Rate - Afr Amer 169 mL/min (>60); Estimated Creatinine Clearance 40.83 ml/min; Globulin 2.7 g/dL (2.2-4.2); Glucose 97 mg/dL (74-106); Potassium 3.5 mmol/L (3.5-5.1); Sodium Level 141 mmol/L (136-145); Thyroid Stim Hormone (TSH) 1.67 uIU/mL (0.358-3.74)
[2019-03-11] MEDS: Acetaminophen 325 MG Tablet 650 MG PO (08:22)
[2019-03-11] MEDS: Glucerna Shake 120 ML LIQUID PO ×4 (09:33→21:49)
[2019-03-11] MEDS: Ceftriaxone 1 GM/50 ML BAG IV (09:33)
[2019-03-11] MEDS: Senna/Docusate Sodium 1 Tablet 2 TABLET PO ×2 (09:36→21:48)
[2019-03-11] MEDS: Enoxaparin 40 MG/0.4 ML Syringe SC (09:36)
[2019-03-11] MEDS: Polyethylene Glycol 3350 17 GM PACKET PO (09:36)
[2019-03-11] MEDS: Escitalopram Oxalate 10 MG Tablet PO (09:36)
[2019-03-11 10:20] LABS: M R Staph aureus DNA By PCR Negative (Negative); Probe Check PASS; Specimen Processing Control PASS
--- NOTE | 2019-03-11 11:28 | NURSING ---
This RN called lab and requested update on respiratory panel- notified it was just placed in machine and will be ready in a few hours.
--- NOTE | 2019-03-11 12:30 | NURSING ---
Pt + strep A in urine. believes pt possibly has some pneumonia as well. After reviewing infection control policy will continue droplet precautions per recommendation for 24hrs after treatment for same.
--- NOTE | 2019-03-11 16:10 | CM.UR ---
RN CM Assessment Introduced role of RN CM to patient. Patient is alert and able to participate in RN CM Assessment. Care providers, pharmacy, and demographics verified. No family at bedside. Presentation: Increased shortness of breath. Admit Dx: COPD exacerbation Re-Admit: no Barriers/Issues: physical barriers; states doesn't really help her. PCP: Alejandra Specialists: phyllis (pulm) Preferred Pharmacy: [facility] Insurance: [employer]/Accountable commercial Rx Benefit: Yes LNOK: , [place] LW/HPOA: Yes both. Had at this time. copied and placed copies in chart. gave originals back to patient. Living Arrangements: 1 story house. doesn't have to go to basement b/c does laundry. She has a studio on the 2nd floor but doesn't have to go up there. When she does takes the steps slow. No steps into /out of the house. ADL?s: Needs help with meal prep, laundry, cleaning. Transportation: self DME: o2, cpap, nebulizer, walker, grab bars, raised toilet seat DME co: o2 is from [facility], [place]. HHC: None SNF: None Goal: to return home. would like additional help at home and does want to discuss hospice. Friend suggested she discuss hospice because she will get help at home. DC PLAN: Home. Alerted DAVID Arce who is agreeable to discuss help in home including Hospice vs palliative care vs private pay. Tobias Hinojosa RN, CCM.
[2019-03-11 16:21] LABS: Bedside Glucose 224 mg/dL (70-110)
[2019-03-11] MEDS: Insulin Lispro 100 UNIT/ML INSULN.PEN SC (16:28)
--- NOTE | 2019-03-11 18:30 | CPS ---
Pts. home trilogy unit setup in room with 3L bled in. Pt. understands to have RN contact PROJECT PORTFOLIO ANALYST if any problems occur with machine throughout night.
--- NOTE | 2019-03-11 18:35 | CASEMGMT ---
SOCIAL WORK INFORMANT: TIMBER MANAGEMENT SPECIALIST, FERMIN REASON FOR REFERRAL: INFORMATION ON PALLIATIVE MEDICINE/HOSPICE AND CARD CUTTER. MET WITH PATIENT IN ROOM. INTRODUCED ROLE AND REASON FOR REFERRAL. BROCHURES ON PALLIATIVE MEDICINE AND HOSPICE PROVIDED PER REQUEST. EDUCATION PROVIDED AND ALL QUESTIONS ANSWERED. DISCUSSED CARD CUTTER AND PROVIDED PATIENT WITH LIST. FINANCES DISCUSSED AND PATIENT STATES OVER INCOME FOR MEDICAID. PATIENT VOICED FRUSTRATION WITH GETTING ASSISTANCE WHEN OVER INCOME FOR MEDICAID. ACTIVE LISTENING AND SUPPORT PROVIDED. PATIENT DENIES ANY FURTHER NEEDS AT THIS TIME. PATIENT PLANS TO RETURN HOME BEFORE UPON D/C. D. PJ ELLIOTT, ENGINEER THIRD ASSISTANT.
[2019-03-11] MEDS: 0.9% NaCl Peripheral Flush Adult/Peds IV (21:50)
[2019-03-11 23:15] LABS: Bedside Glucose 210 mg/dL (70-110)
[2019-03-12] VITALS (19 sets, daily range): BP systolic 140–183; BP diastolic 75–118; PULSE 84–134; RESP 16–28; TEMP 36.6–37.1; O2SAT 93–98
--- NOTE | 2019-03-12 02:18 | EKG12_ITS ---
Test Reason : SENIOR INVESTIGATOR Blood Pressure : / mmHG Vent. Rate : 120 BPM Atrial Rate : 120 BPM P-R Int : 138 ms QRS Dur : 080 ms QT Int : 298 ms P-R-T Axes : 074 035 055 degrees QTc Int : 421 ms Sinus tachycardia with Premature atrial complexes Nonspecific ST abnormality Abnormal ECG Confirmed by [place], LUDMILA ([id number]), greeting card editor SHAHEEN DAILEY ([id number]) on 03/15/2019 11:24:33 AM Referred By: ALISON Confirmed By:LUDMILA HERRING MD
--- NOTE | 2019-03-12 02:21 | RAD_ITS ---
STUDY: X-RAY CHEST REASON FOR EXAM: Female, 74 years old. Shortness of breath. Dyspnea. TECHNIQUE: Single AP portable view of the chest. COMPARISON: 01/08/2019. 07/20/2016. FINDINGS: There is hyperinflation of the lungs consistent with chronic obstructive lung disease (COPD). There is fibrotic and emphysematous changes in the lungs. There is no demonstrated acute pulmonary infiltrate. There is no demonstrated pleural abnormality. Normal size heart. Normal mediastinum and bee. Normal visualized pulmonary arteries. There is atherosclerotic calcification of the aortic arch with tortuosity. There are no visualized acute osseous abnormalities. There is no demonstrated abnormality of the visualized soft tissue structures of the upper abdomen. RAD/Chest 1 View (Portable) IMPRESSION: Chronic fibrotic and emphysematous changes in the lungs. No evidence for acute cardiopulmonary pathology. Electronically Signed: Blair Irizarry MD at 4:29 EDT , Service support ,
[2019-03-12] MEDS: Ipratropium/Albuterol Sulfate 3 ML AMPUL.NEB INHALATION ×6 (02:31→23:01)
--- NOTE | 2019-03-12 02:36 | NURSING ---
Pt awake in bed and suddenly became SOB while on 3L nc; HR and BP elevated. Dr Rao notified and in to see pt. CXR, troponins, EKG, x1 dose Labetalol 10mg ordered. Pt educated on need to wear cpap @ HS.
--- NOTE | 2019-03-12 03:03 | PCM.HOSP.N ---
Hospitalist Note Patient was admitted on 03/11/2019 for COPD exacerbation most likely secondary to strep pneumonia. Please call me patient had sudden onset shortness of breath and her blood pressure was found 181/102, heart rate 136/min. Since admission, her blood pressure has been about 140s/80s Patient is on Trilogy AVAPS TV 200 ml at home and here but was not wearing at that time or shortness of breath. Patient follows Dr. Taylor and was told she also has obstructive sleep apnea. Denies chest pain. EKG was done. Sinus tach at 111. No significant ST changes suggestive of ischemia. Chest x-ray and troponin ordered. DuoNeb nebulization given by respiratory therapist. Patient was put back on AVAPS. Shortness of breath has resolved. Labetalol 10 mg IV ordered. Repeat blood pressure 140/87 and heart rate 87/min. Chest x-ray reviewed. No significant change from yesterday. Official report pending. Streptococcus antigen in urine is positive. MRSA nasal screen negative. Patient is on Rocephin and Zithromax. 03/12/19 02:46: Troponin I negative Code Visit Inpatient E&M: 11374 Subs Hosp L1
[2019-03-12 06:26] LABS: Absolute Lymphocyte Count 0.73 X10^3/uL (0.83-4.51); Absolute Neutrophil Count 7.2 X10^3/uL (2.0-7.7); Basophil# 0.01 X10^3/uL; Basophil% 0.1 % (0-1); Hematocrit 37.2 % (37-47); Hemoglobin 12.1 g/dL (12.0-15.0); Lymphocyte # 0.73 X10^3/ul (4.0); Lymphocyte % 8.6 % (19-41); Mean Corp Hgb Conc 32.5 g/dL (32-36); Mean Corpuscular Hgb 28.1 pg (27.0-32.0); Mean Corpuscular Volume 86.5 fL (81-99); Mean Platelet Vol. 10.3 fl (6.2-12.0); Monocyte# 0.53 X10^3/uL; Monocyte% 6.2 % (0-10); NRBC Flagged by Analyzer 0 % (0-5); Neutrophil % 84.4 % (47-70); POSITIVE COUNT YES; Platelet Count 139 K/mm3 (150-450); RBC Distribution Width CV 14.6 % (11.6-14.6); RBC Distribution Width SD 46.5 fl (35.1-43.9); White Blood Count 8.5 K/mm3 (4.4-11.0)
[2019-03-12 06:30] LABS: Anion Gap 6 (5-15); BUN 9 mg/dL (7-18); BUN/Creat Ratio 16.8 RATIO (10-20); Calcium,Total 8.9 mg/dL (8.5-10.1); Chloride 106 mmol/L (98-107); Creatinine, Serum 0.54 mg/dL (0.55-1.02); EST Glomerular Filtration Rate 119 mL/min (>60); Est Glom Filt Rate - Afr Amer 143 mL/min (>60); Estimated Creatinine Clearance 40.83 ml/min; Glucose 173 mg/dL (74-106); Magnesium 2.1 mg/dL (1.6-2.6); Sodium Level 138 mmol/L (136-145)
[2019-03-12] MEDS: 0.9% NaCl Peripheral Flush Adult/Peds IV ×6 (06:49→21:19)
[2019-03-12 06:54] LABS: Differential Indicated SCAN CRITERIA MET
[2019-03-12 07:08] LABS: Differential Comment SCANNED
--- NOTE | 2019-03-12 10:14 | PCM.PN.HOSP ---
Patient Problems: Active and Suspected Problems UTI (urinary tract infection) (Acute) Sepsis (Acute) Subjective: CC follow-up respiratory failure patient went into acute respiratory distress earlier on this a.m. resulting in the use of AVAPS again (she is on that at home). Cardiac enzymes ordered, chest x-ray ordered in addition to troponin. Her troponin and so far remain negative to date Objective: GENERAL: cooperative frail looking dyspneic at rest HEENT: Atraumatic; EYES; Anicteric, Normal Conjunctiva NECK; supple, normal thyroid, RESPIRATORY: Diminished to auscultation with bilateral wheezes CARDIOVASCULAR: Regular S1 S2, GI: soft, non-tender, normoactive bowel sounds, : No Renal angle tenderness; EXTREMITIES: No edema, no cyanosis. MUSCULOSKELETAL: No Joint Tenderness; NEURO: Awake; no lateralizing signs. SKIN: No Rash PSYCH; Normal affect Vitals/I&O's: Vital Signs Temp Pulse Resp BP Pulse Ox 98.5 F 84 19 H 140/87 H 97 03/12/19 03:05 03/12/19 06:47 03/12/19 06:47 03/12/19 03:05 03/12/19 06:47 Oxygen Flow Rate (L/min) 3 Oxygen Delivery Method Bi-pap Weight: 57.2 kg Body Mass Index (BMI) 22.3 Intake and Output for Last 24 Hours 03/10/19 03/11/19 03/12/19 23:59 23:59 23:59 Intake Total 1000 / 1000 2123.75 / 2363.75 360 / 360 Balance 1000 / 1000 2123.75 / 2363.75 360 / 360 Microbiology Past 72 Hours 03/10/19 21:27 Blood Culture (Wb) - Anticubital Left Bacteria Detection (PCR) - Preliminary Staphylococcus epidermidis 03/10/19 21:27 Blood Culture (Wb) - Anticubital Left Blood Culture - Preliminary 03/11/19 06:40 Sputum, Expectorated/Coughed Gram Stain - Final 03/11/19 05:00 Mucosa - Nasopharyngeal Respiratory Panel (PCR) - Final 03/10/19 21:45 Urine, Clean Catch Legionella Antigen - Final 03/10/19 21:45 Urine, Clean Catch Streptococcus pneumoniae Antigen (M - Final Streptococcus pneumonia Ag Laboratory Results 03/11/19 08:20: MRSA (PCR) Negative 03/11/19 16:15: POC Glucose 224 H 03/11/19 23:10: POC Glucose 210 H 03/12/19 02:46: Troponin I < 0.015 03/12/19 04:55: WBC 8.5, RBC 4.30, Hgb 12.1, Hct 37.2, MCV 86.5, MCH 28.1, MCHC 32.5, RDW Std Deviation 46.5 H, RDW Coeff of Penny 14.6, Plt Count 139 L, MPV 10.3, Immature Gran % (Auto) 0.700, Neut % (Auto) 84.4 H, Lymph % (Auto) 8.6 L, [place] % (Auto) 6.2, Eos % (Auto) 0.0, Baso % (Auto) 0.1, Absolute Neuts (auto) 7.2, Absolute Lymphs (auto) 0.73 L, Nucleated RBC % 0, Differential Comment SCANNED 03/12/19 04:55: Sodium 138, Potassium 4.0, Chloride 106, Carbon Dioxide 26.0, Anion Gap 6, BUN 9, Creatinine 0.54 L, Estim Creat Clear Calc 40.83, Est GFR (MDRD) Af Amer 143, Est GFR (MDRD) Non-Af 119, BUN/Creatinine Ratio 16.8, Glucose 173 H, Calcium 8.9, Magnesium 2.1 Current Medications Acetaminophen (Tylenol) 650 mg PO Q6H PRN PRN PRN Reason: Mild Pain (1-3)/Temp > 100.7 F Last Admin: 03/11/19 08:22 Dose: 650 mg Documented by: Albuterol Sulfate (Ventolin Aerosols) 2.5 mg INHALATION Q2H PRN PRN PRN Reason: Shortness of Breath/Wheezing Albuterol/Ipratropium (Duoneb) 3 ml INHALATION Q4H.RT [facility] Last Admin: 03/12/19 06:47 Dose: 3 ml Documented by: Bisacodyl (Dulcolax) 10 mg RECTAL DAILY PRN PRN PRN Reason: Constipation Dextrose (D50w Syringe) 0 gm IV X1 PRN; Protocol PRN Reason: Hypoglycemia Enoxaparin Sodium (Lovenox) 40 mg SC DAILY [facility] Last Admin: 03/11/19 09:36 Dose: 40 mg Documented by: Escitalopram Oxalate (Lexapro) 10 mg PO DAILY [facility] Last Admin: 03/11/19 09:36 Dose: 10 mg Documented by: Glucagon () 1 mg IM .X1 PRN PRN Reason: Hypoglycemia Azithromycin 500 mg/ Dextrose 255 mls @ 250 mls/hr IV Q24 [facility] Stop: 03/13/19 11:02 Last Infusion: 03/11/19 12:23 Dose: Infused Documented by: Ceftriaxone Sodium (Rocephin) 1 gm in 50 mls @ 100 mls/hr IV Q24 [facility] Last Infusion: 03/11/19 10:17 Dose: Infused Documented by: Insulin Human Lispro (Humalog Kwikpen (Bkc)) 0 unit SC BIDCM [facility]; Protocol Last Admin: 03/11/19 16:28 Dose: 4 u Documented by: Melatonin (Melatonin) 3 mg PO QHS PRN PRN PRN Reason: INSOMNIA Methylprednisolone (Solu-Medrol) 40 mg IV Q8 [facility] Last Admin: 03/12/19 06:49 Dose: 40 mg Documented by: Morphine Sulfate () 2 mg IV Q3H PRN PRN PRN Reason: Severe pain (7-10) Nutritional Formula (Lactose Free) (Glucerna Shake) 120 ml PO 4X/DAY [facility] Last Admin: 03/11/19 21:49 Dose: 120 ml Documented by: Oxycodone HCl (Oxyir) 5 mg PO Q4H PRN PRN PRN Reason: Moderate Pain (4-6/10) Polyethylene Glycol (Miralax) 17 gm PO DAILY [facility] Last Admin: 03/11/19 09:36 Dose: 17 gm Documented by: Prochlorperazine Edisylate (Compazine Iv) 5 mg IV Q4H PRN PRN PRN Reason: Breakthrough nausea/vomiting Senna/Docusate Sodium (Senokot-S, Roya-Colace) 2 tablet PO BID [facility] Last Admin: 03/11/19 21:48 Dose: 2 tablet Documented by: Sodium Chloride () 5 - 15 ml IV UD PRN PRN Reason: SALINE FLUSH Last Admin: 03/12/19 06:49 Dose: 10 ml Documented by: Throat Lozenges (Cepacol Sore Throat Lozenge) 1 lozenge MUCOUS MEM Q2H PRN PRN PRN Reason: Sore throat or cough Medical Necessity - Tobacco Use Smoking Status: Former smoker Assessment/Plan All Active Problems UTI (urinary tract infection) (Acute) Sepsis (Acute) Respiratory failure with hypoxia (Acute) Patient is a 74-year-old lady with history of COPD secondary to alpha-1 antitrypsin deficiency on baseline oxygen 3 L at home presented with progressive shortness of breath and assessment of COPD exacerbation with superimposed pneumonia was made admitted to regular nursing for further management 1. Acute on chronic hypoxic respiratory failure secondary to combination of COPD with acute exacerbation as well as suspected pneumonia. ~03/12/2019 patient went into acute respiratory distress earlier on this a.m. resulting in the use of AVAPS again (she is on that at home). Cardiac enzymes ordered chest x-ray ordered in addition to troponin. Her troponin and so far remain negative to date ~Consult placed to pulmonary medicine 2. COPD with acute exacerbation ~Patient admitted to regular nursing floor managed with supplemental oxygen, bronchodilator treatment antibiotics as well as systemic steroids. ?03/29/2019 her progress is rather been slow consult was placed the patient's casting inspector Dr. Taylor 3. Suspected pneumonia ~ patient urine assay for strep came back positive subsequently started on Rocephin in addition to Zithromax which had been initiated on admission ?Urine cultures came back positive ; however blood cultures came back positive for staph epi most likely contaminant 4. Chronic hypoxic respiratory failure secondary to COPD ~ patient is on baseline 3 L of oxygen at home. Patient is followed by Dr. Taylor as outpatient 5. Cholelithiasis with distended gallbladder ~ Patient currently asymptomatic. Had apparently been evaluated previously was deemed to be a poor surgical candidate 6. Depression Patient is on SSRI did continue 7. Alpha-1 antitrypsin ~with subsequent COPD 8. DVT prophylaxis ~ on enoxaparin Clinical Impression(s) from Imaging Studies Chest X-Ray 03/12/19 02:21 IMPRESSION: Chronic fibrotic and emphysematous changes in the lungs. No evidence for acute cardiopulmonary pathology. Electronically Signed: Blair Irizarry MD at 4:29 EDT , Service support , Code Visit Inpatient E&M: 13390 Subs Hosp L3
[2019-03-12] MEDS: Ceftriaxone 1 GM/50 ML BAG IV (10:31)
[2019-03-12] MEDS: Glucerna Shake 120 ML LIQUID PO ×4 (10:39→21:16)
[2019-03-12] MEDS: Escitalopram Oxalate 10 MG Tablet PO (10:40)
[2019-03-12] MEDS: Polyethylene Glycol 3350 17 GM PACKET PO (10:40)
[2019-03-12] MEDS: Enoxaparin 40 MG/0.4 ML Syringe SC (10:41)
[2019-03-12] MEDS: Insulin Lispro 100 UNIT/ML INSULN.PEN SC ×2 (10:47→17:28)
[2019-03-12 12:46] LABS: Bedside Glucose 179 mg/dL (70-110)
[2019-03-12 12:46] LABS: Bedside Glucose 185 mg/dL (70-110)
[2019-03-12] MEDS: guaiFENesin 1,200 MG Tablet 1200 MG PO (14:45)
[2019-03-12 17:36] LABS: Bedside Glucose 171 mg/dL (70-110)
[2019-03-12] MEDS: LORazepam 0.5 MG Tablet PO (18:33)
[2019-03-12] MEDS: 0.9% NaCl IVPB Med Flush (250 mL) 15 ML IV (18:33)
[2019-03-12] MEDS: hydrALAZINE 20 MG/ML Vial 10 MG IV ×2 (18:40→19:10)
[2019-03-12 19:01] LABS: Bedside Glucose 159 mg/dL (70-110)
[2019-03-12] MEDS: Acetaminophen 325 MG Tablet 650 MG PO (19:09)
--- NOTE | 2019-03-12 19:11 | NURSING ---
ICE CREAM TRUCK DRIVER called. This nurse in room and pt had just recently had Apresoline 10mg for Elevated BP and pt stated she had a Headache and her heart was fluttering and she felt the same way she did when she first came in. C.o SOb despite CPAP being on. Labored breathing. BP was 221/187. Hr of 129. Blood sugar checked, see lab results. Dr. Carrasco came to room. CPs here and did Stat [address] Carrasco aware of the results. BP came down to 197/109, Hr 118. Dr. Carrasco ordered additional 10mg of Apresoline Iv and that was given.
--- NOTE | 2019-03-12 19:12 | PCM.HOSP.N ---
Hospitalist Note Rapid response note: Rapid response called as patient tachycardic, tachypneic, elevated BP. EKG obtained w/ sinus tachycardia, recent hydralazine 10 mg IV x 1 administered per primary hospitalist request, ordered an additional 10 mg IV x 1. Requested her CPAP be replaced. She had recently gotten up to the restroom and was off supplementation and upon returning had onset of these findings with concurrent generalized headache and anxious feeling. Patient prior to evaluation had also been ordered ativan 0.5 mg po x 1 as noted being very anxious and noted current sensation similar to when she initially came into the hospital. She improved w/ resumption of her CPAP with lessening tachycardia and decreasing BP. Will continue to closely monitor and discussed need for patient to maintain her mask. She notes anxiety as the prime reason she keeps removing it. Discussed importance and reason to maintain and she was amenable to more lengthy attempts with access to PRN low dose oral ativan. Physical Examination: General: awake, alert, oriented x 3 and cooperative, seated upright in the bed, anxious appearing. HEENT: AT/NC, EOMI, PERRLA, mildly dry MM, nare mask in place. Pulmonary: Diffusely diminished breath sounds, greater bases, currently no excessively noted wheezing but increased respiratory rate. Heart: Tachycardiac with regular rhythm; no gallop, rub audible.
[2019-03-12 21:15] LABS: Bedside Glucose 161 mg/dL (70-110)
[2019-03-12] MEDS: Senna/Docusate Sodium 1 Tablet 2 TABLET PO (21:17)
[2019-03-13] VITALS (17 sets, daily range): BP systolic 146–176; BP diastolic 75–120; PULSE 102–122; RESP 18–24; TEMP 36.4–37.3; O2SAT 93–98
[2019-03-13] MEDS: hydrALAZINE 20 MG/ML Vial 10 MG IV (02:51)
[2019-03-13] MEDS: LORazepam 0.5 MG Tablet PO ×2 (03:34→22:02)
[2019-03-13] MEDS: Ipratropium/Albuterol Sulfate 3 ML AMPUL.NEB INHALATION ×6 (03:39→23:20)
[2019-03-13 05:54] LABS: Absolute Lymphocyte Count 0.73 X10^3/uL (0.83-4.51); Absolute Neutrophil Count 10.1 X10^3/uL (2.0-7.7); Basophil# 0.02 X10^3/uL; Basophil% 0.2 % (0-1); Hematocrit 42.8 % (37-47); Hemoglobin 13.8 g/dL (12.0-15.0); Lymphocyte # 0.73 X10^3/ul (4.0); Lymphocyte % 6.2 % (19-41); Mean Corp Hgb Conc 32.2 g/dL (32-36); Mean Corpuscular Volume 86.8 fL (81-99); Monocyte# 0.87 X10^3/uL; Monocyte% 7.4 % (0-10); NRBC Flagged by Analyzer 0 % (0-5); Neutrophil # 10.09 X10^3/uL (2.7-7.7); Neutrophil % 85.8 % (47-70); Platelet Count 208 K/mm3 (150-450); RBC Distribution Width CV 14.8 % (11.6-14.6); RBC Distribution Width SD 47.2 fl (35.1-43.9); Red Blood Count 4.93 M/mm3 (4.2-5.4); White Blood Count 11.8 K/mm3 (4.4-11.0)
[2019-03-13 06:22] LABS: Anion Gap 7 (5-15); BUN 13 mg/dL (7-18); Calcium,Total 9.5 mg/dL (8.5-10.1); Chloride 107 mmol/L (98-107); Creatinine, Serum 0.56 mg/dL (0.55-1.02); EST Glomerular Filtration Rate 112 mL/min (>60); Est Glom Filt Rate - Afr Amer 135 mL/min (>60); Estimated Creatinine Clearance 40.83 ml/min; Glucose 170 mg/dL (74-106); Potassium 3.9 mmol/L (3.5-5.1); Sodium Level 139 mmol/L (136-145)
[2019-03-13 07:01] LABS: Bedside Glucose 119 mg/dL (70-110)
[2019-03-13] MEDS: guaiFENesin 1,200 MG Tablet 1200 MG PO ×2 (09:24→22:03)
[2019-03-13] MEDS: Enoxaparin 40 MG/0.4 ML Syringe SC (09:24)
[2019-03-13] MEDS: Senna/Docusate Sodium 1 Tablet 2 TABLET PO (09:24)
[2019-03-13] MEDS: Escitalopram Oxalate 10 MG Tablet PO (09:24)
[2019-03-13] MEDS: Polyethylene Glycol 3350 17 GM PACKET PO (09:24)
--- NOTE | 2019-03-13 09:30 | PN_ITS ---
Subjective: Chief complaint: Follow-up after admission for acute on chronic hypoxic respiratory failure due to COPD exacerbation and suspected pneumonia. Patient seen and examined. Yesterday evening, patient had an episode of worsening shortness of breath and she was tachycardic and tachypneic. She was started back on CPAP. Today, she still complaining of shortness of breath without any improvement. Still having cough with minimal sputum. She is afebrile, tachycardic, blood pressure slightly elevated, she is on CPAP, respiratory rate is 24. - Physical Exam General: Alert, Oriented x3, Cooperative, - - She is in moderate to severe respiratory distress. HEENT: Atraumatic, PERRLA, EOMI, Normocephalic Oral: Moist Mucosa, No Gingival or Mucosal Lesions/ Ulcerations Neck: Supple, No JVD, Negative Carotid Bruits, Trachea Midline, Thyroid Normal Size and Texture Lungs: No wheeze, No rales, Diminished, Rhonchi, Short of Breath, Tachypneic Cardiovascular: Regular rate, Regular Rhythm, Normal S1, Normal S2, PMI Normal, Tachycardic Abdomen: Bowel Sounds Present, Soft, Non Tender, Non-Distended, No Hepato- splenomegaly Extremities: No clubbing, No cyanosis, No edema Skin: No rashes, No breakdown Lymphatic: No Cervical, Supraclavicular, or Inguinal Adenopathy Neurological: Cranial nerves II-XII grossly intact, Motor Exam 5/5 strength throughout Psych/Mental Status: Normal Affect, Appropriate, Alert and oriented to time, place, person, mood and affect Vital Signs Temp Pulse Resp BP Pulse Ox 97.6 F L 121 H 24 H 168/92 H 93 03/13/19 09:18 03/13/19 09:18 03/13/19 09:18 03/13/19 09:18 03/13/19 09:18 Oxygen Flow Rate (L/min) 3 Oxygen Delivery Method CPAP Weight: 126 lb 1.671 oz Body Mass Index (BMI) 22.3 Intake and Output for Last 24 Hours 03/11/19 03/12/19 03/13/19 23:59 23:59 23:59 Intake Total 2123.75 / 2363.75 1456.5 / 2006.5 900 / 900 Output Total 400 / 900 900 / 900 Balance 2123.75 / 2363.75 1056.5 / 1106.5 0 / 0 Microbiology Past 72 Hours 03/11/19 06:40 Gram Stain - Final Sputum, Expectorated/Coughed Respiratory Culture - Preliminary Gram negative shira 03/10/19 21:45 Urine Culture - Final Urine, Clean Catch Mixed Gram Positive Organisms 03/10/19 21:27 Bacteria Detection (PCR) - Final Blood Culture (Wb) - Anticubital Left Staphylococcus epidermidis Blood Culture - Preliminary Staphylococcus epidermidis 03/11/19 05:00 Respiratory Panel (PCR) - Final Mucosa - Nasopharyngeal 03/10/19 21:45 Legionella Antigen - Final Urine, Clean Catch Streptococcus pneumoniae Antigen (M - Final Streptococcus pneumonia Ag Laboratory Tests Past 24 Hrs 03/13/19 03/13/19 05:34 05:34 WBC 11.8 H RBC 4.93 Hgb 13.8 Hct 42.8 MCV 86.8 MCH 28.0 MCHC 32.2 RDW Std Deviation 47.2 H RDW Coeff of Penny 14.8 H Plt Count 208 MPV 10.0 Immature Gran % (Auto) 0.400 Neut % (Auto) 85.8 H Lymph % (Auto) 6.2 L Shelby % (Auto) 7.4 Eos % (Auto) 0.0 Baso % (Auto) 0.2 Absolute Neuts (auto) 10.1 H Absolute Lymphs (auto) 0.73 L Nucleated RBC % 0 Sodium 139 Potassium 3.9 Chloride 107 Carbon Dioxide 25.0 Anion Gap 7 BUN 13 Creatinine 0.56 Estim Creat Clear Calc 40.83 Est GFR (MDRD) Af Amer 135 Est GFR (MDRD) Non-Af 112 BUN/Creatinine Ratio 23.0 H Glucose 170 H Calcium 9.5 POC Glucose 03/13/19 03/12/19 03/12/19 06:55 21:06 18:57 POC Glucose 119 H 161 H 159 H 03/12/19 03/12/19 03/12/19 17:27 12:32 10:46 POC Glucose 171 H 185 H 179 H Clinical Impression(s) from Imaging Studies Chest X-Ray 03/10/19 21:45 IMPRESSION: Severe hyperexpansion and diffuse emphysematous changes. Stable chronic fibrosis of the lingula. Negative for new consolidation, focal atelectasis or a substantial pleural effusion. Normal cardiac size. Atherosclerotic changes of the thoracic aorta. Electronically Signed: Shila Bocanegra MD at 22:07 EDT , Service support , Abdomen/Pelvis CT 03/10/19 22:44 IMPRESSION: Severe fibrotic COPD. Cholelithiasis. Distended gallbladder. Suboptimal evaluation of the GI tract without oral contrast. Cannot exclude enteritis or colitis. Electronically Signed: Lance White MD at 23:33 EDT , Service support , Chest X-Ray 03/12/19 02:21 IMPRESSION: Chronic fibrotic and emphysematous changes in the lungs. No evidence for acute cardiopulmonary pathology. Electronically Signed: Blair Irizarry MD at 4:29 EDT , Service support , Medical Necessity - Tobacco Use Smoking Status: Former smoker Assessment/Plan All Active Problems Respiratory failure with hypoxia (Acute) This is a 74 years old female patient presented to the emergency room because of worsening shortness of breath and she was found to have acute on chronic hypoxic respiratory failure due to acute COPD exacerbation as well as suspected pneumonia. #1 acute COPD exacerbation: Chest x-ray without obvious acute infiltrate or consolidation, chronic findings noted. Patient is on CPAP, IV Zithromax and cefepime as well as IV Solu-Medrol and bronchodilators. Respiratory panel for viruses were negative. Urine pneumococcal antigen was positive. Sputum culture revealed stenotrophomonas. Plan: Continue same treatment, chest physiotherapy, ABG, pulmonology consult. #2 acute on chronic hypoxic respiratory failure: Secondary to above, patient has been on oxygen and CPAP at home. Plan as above. #3 suspected community-acquired pneumonia: On chest x-ray, no obvious infiltrate or consolidation. Urine pneumococcal antigen was positive. Patient is on IV Zithromax and cefepime. Sputum culture revealed stenotrophomonas. Blood culture revealed staph epidermidis in 1 bottle which is probably contamination, the other blood culture showed no growth in 48 hours. Patient has been afebrile, minimal leukocytosis likely because of steroids. #4 COPD/alpha-1 antitrypsin deficiency: According to the patient's , she has been receiving alpha-1 antitrypsin infusions every week, last infusion was this past Wednesday. #5 chronic respiratory failure: On home oxygen and CPAP. Plan as above. #6 DVT prophylaxis: Subcu Lovenox. This note was generated with [facility] dictation software. It may contain incorrect words, spelling, and punctuation that were not noted in checking the note before signing. Code Visit Inpatient E&M: 10075 Subs Hosp L2
[2019-03-13] MEDS: Glucerna Shake 120 ML LIQUID PO ×3 (09:32→22:03)
--- NOTE | 2019-03-13 10:36 | CASEMGMT ---
Social Work Note DAVID met with pt and pt's Cheo present in room. Pt gave this worker permission to speak to her in front of her . SW checked in with pt regarding Palliative Care Referral. Pt agreeable to Palliative Care Referral. Pt gives permission for Palliative Care to call her Cheo to discuss appointment. SW explained referral process. SW also educated pt on [facility]. Pt agreeable for [facility] referral. Pt again would like [facility] to call her . Pt denied additional needs or concerns at this time. DAVID placed a call to RUTH Padron at [facility] and provided Palliative Care Referral. SW faxed referral to [facility]. SW completed [facility] Referral Form and faxed to [facility]. Jasmin Romo FABRIC STRETCHER, TAR WORKER
[2019-03-13 11:20] LABS: Allen Test POS; Base Excess 2 mmol/L (-2 to +2); Bicarbonate 25.9 mmol/L (22-26); Blood Gas Specimen Type ART; EPAP 5; FI02 33; PO2 78 mmHG (75-100); RR 24; SITE R Radial; SO2 96 % (95-99); Time Given 1118; Total Carbon Dioxide 27 mmol/L; pCO2 36.3 mmHg (35-45); pH 7.46 (7.35-7.45)
[2019-03-13 12:15] LABS: Bedside Glucose 162 mg/dL (70-110)
--- NOTE | 2019-03-13 13:18 | CHAPLAIN ---
Type of Pastoral Visit _x__ Initial Visit ___ Follow-up Visit ___ On-call Visit ___ General Patient Visit ___ Spiritual Assessment ___ Family Conference ___ Bereavement ___ Rapid Response ___ Code Blue ___ Other (describe below) Pastoral Care Referral From _x__ Patient ___ Family ___ Nurse ___ Physician ___ Pawn Broker ___ Dedicated Driver ___ Other (describe below) Sacrament/Intervention _x__ Active listening ___ Anointing ___ Anabaptism ___ Bereavement ___ Communion _x__ [place] exploration ___ ___ Life review _x__ Prayer ___ Reconciliation ___ Sacrament of Sick _x__ Supportive presence ___ Wedding ___ Other (describe below) Pastoral Comments patient is welcoming of spiritual support; pt identifies herself as converted Mosque with very strong keya
[2019-03-13] MEDS: 0.9% NaCl Peripheral Flush Adult/Peds IV ×2 (13:38→23:33)
[2019-03-13 17:21] LABS: Bedside Glucose 146 mg/dL (70-110)
[2019-03-13] MEDS: Tobramycin 80 MG/2 ML Vial 300 MG INHALATION (19:46)
[2019-03-13] MEDS: BENZOCAINE/MENTHOL 1 LOZENGE MUCOUS MEM (22:02)
[2019-03-13] MEDS: MELATONIN 3 MG TABLET PO (22:02)
[2019-03-13 22:56] LABS: Bedside Glucose 141 mg/dL (70-110)
[2019-03-13] MEDS: MethylPREDNISolone 125 MG/2 ML Vial 60 MG IV (23:35)
[2019-03-14] VITALS (13 sets, daily range): BP systolic 139–188; BP diastolic 80–98; PULSE 102–123; RESP 18–24; TEMP 36.6–37.2; O2SAT 96–98
[2019-03-14] MEDS: hydrALAZINE 20 MG/ML Vial 10 MG IV ×2 (02:23→07:22)
[2019-03-14] MEDS: 0.9% NaCl Peripheral Flush Adult/Peds IV ×4 (02:23→16:36)
[2019-03-14] MEDS: Ipratropium/Albuterol Sulfate 3 ML AMPUL.NEB INHALATION ×4 (04:04→19:15)
[2019-03-14] MEDS: Tobramycin 80 MG/2 ML Vial 300 MG INHALATION ×2 (06:55→19:17)
[2019-03-14] MEDS: MethylPREDNISolone 125 MG/2 ML Vial 60 MG IV ×3 (07:15→18:19)
[2019-03-14 07:28] LABS: Absolute Lymphocyte Count 1.45 X10^3/uL (0.83-4.51); Absolute Neutrophil Count 8.8 X10^3/uL (2.0-7.7); Basophil# 0.01 X10^3/uL; Basophil% 0.1 % (0-1); Eosinophil# 0.01 X10^3/uL; Eosinophils% 0.1 % (0-5); Hematocrit 42.1 % (37-47); Hemoglobin 13.8 g/dL (12.0-15.0); Lymphocyte # 1.45 X10^3/ul (4.0); Lymphocyte % 12.5 % (19-41); Mean Corp Hgb Conc 32.8 g/dL (32-36); Mean Corpuscular Hgb 28.1 pg (27.0-32.0); Mean Corpuscular Volume 85.7 fL (81-99); Mean Platelet Vol. 9.6 fl (6.2-12.0); Monocyte# 1.28 X10^3/uL; NRBC Flagged by Analyzer 0 % (0-5); Neutrophil # 8.79 X10^3/uL (2.7-7.7); Neutrophil % 75.8 % (47-70); Platelet Count 234 K/mm3 (150-450); RBC Distribution Width CV 15.3 % (11.6-14.6); RBC Distribution Width SD 47.9 fl (35.1-43.9); Red Blood Count 4.91 M/mm3 (4.2-5.4); White Blood Count 11.6 K/mm3 (4.4-11.0)
[2019-03-14 07:40] LABS: Bedside Glucose 140 mg/dL (70-110)
[2019-03-14 07:55] LABS: Anion Gap 5 (5-15); BUN 16 mg/dL (7-18); BUN/Creat Ratio 31.3 RATIO (10-20); Calcium,Total 9.5 mg/dL (8.5-10.1); Chloride 104 mmol/L (98-107); Creatinine, Serum 0.51 mg/dL (0.55-1.02); EST Glomerular Filtration Rate 125 mL/min (>60); Est Glom Filt Rate - Afr Amer 151 mL/min (>60); Estimated Creatinine Clearance 40.83 ml/min; Glucose 129 mg/dL (74-106); Potassium 3.9 mmol/L (3.5-5.1); Sodium Level 136 mmol/L (136-145)
--- NOTE | 2019-03-14 09:18 | PN_ITS ---
Subjective: Chief complaint: Follow-up after admission for acute on chronic hypoxic respiratory failure due to COPD exacerbation and suspected pneumonia. Patient seen and examined. No acute events overnight. Today, she mentioned that she feels minimally better compared to yesterday, minimal improvement. Still requiring CPAP. She is afebrile, slightly tachycardic, blood pressure is elevated, on CPAP. - Physical Exam General: Alert, Oriented x3, Cooperative, - - She is in moderate respiratory distress. HEENT: Atraumatic, PERRLA, EOMI, Normocephalic Oral: Moist Mucosa, No Gingival or Mucosal Lesions/ Ulcerations Neck: Supple, No JVD, Negative Carotid Bruits, Trachea Midline, Thyroid Normal Size and Texture Lungs: No rhonchi, No wheeze, No rales, Diminished, Short of Breath, Tachypneic, - - Decreased breath sounds bilateral, otherwise clear. Cardiovascular: Regular rate, Regular Rhythm, Normal S1, Normal S2, PMI Normal, Tachycardic Abdomen: Bowel Sounds Present, Soft, Non Tender, Non-Distended, No Hepato- splenomegaly Extremities: No clubbing, No cyanosis, No edema Lymphatic: No Cervical, Supraclavicular, or Inguinal Adenopathy Neurological: Cranial nerves II-XII grossly intact, Neuro grossly intact Psych/Mental Status: Normal Affect, Appropriate, Alert and oriented to time, place, person, mood and affect Vital Signs Temp Pulse Resp BP Pulse Ox 98 F 123 H 22 H 176/95 H 98 03/14/19 02:15 03/14/19 07:22 03/14/19 04:04 03/14/19 07:22 03/14/19 02:15 Oxygen Flow Rate (L/min) 3 Oxygen Delivery Method CPAP Weight: 126 lb 1.671 oz Body Mass Index (BMI) 22.3 Intake and Output for Last 24 Hours 03/12/19 03/13/19 03/14/19 23:59 23:59 23:59 Intake Total 1456.5 / 2006.5 2289.75 / 2689.75 1000 / 1000 Output Total 400 / 900 1750 / 1750 Balance 1056.5 / 1106.5 539.75 / 939.75 1000 / 1000 Microbiology Past 72 Hours 03/10/19 22:00 Blood Culture - Preliminary Blood Culture (Wb) - Anticubital Right No growth in 48 hours. 03/11/19 06:40 Gram Stain - Final Sputum, Expectorated/Coughed Respiratory Culture - Final Stenotrophomonas maltophilia 03/10/19 21:45 Urine Culture - Final Urine, Clean Catch Mixed Gram Positive Organisms 03/10/19 21:27 Bacteria Detection (PCR) - Final Blood Culture (Wb) - Anticubital Left Staphylococcus epidermidis Blood Culture - Preliminary Staphylococcus epidermidis 03/11/19 05:00 Respiratory Panel (PCR) - Final Mucosa - Nasopharyngeal Laboratory Tests Past 24 Hrs 03/13/19 03/14/19 03/14/19 11:16 07:10 07:10 WBC 11.6 H RBC 4.91 Hgb 13.8 Hct 42.1 MCV 85.7 MCH 28.1 MCHC 32.8 RDW Std Deviation 47.9 H RDW Coeff of Penny 15.3 H Plt Count 234 MPV 9.6 Immature Gran % (Auto) 0.500 Neut % (Auto) 75.8 H Lymph % (Auto) 12.5 L Cole % (Auto) 11.0 H Eos % (Auto) 0.1 Baso % (Auto) 0.1 Absolute Neuts (auto) 8.8 H Absolute Lymphs (auto) 1.45 Nucleated RBC % 0 Specimen Type ART Sample Site R Radial pH 7.46 H Bicarbonate Actual 25.9 POC Total CO2 27 Base Excess 2 O2 Saturation 96 O2 % 33 ABG pCO2 36.3 ABG pO2 78 Gil Test POS Respiration Rate 24 O2 Delivery Device Bi / C PAP EPAP 5 Blood Gas Notified Whom RN Blood Gas Notified Time 1118 Sodium 136 Potassium 3.9 Chloride 104 Carbon Dioxide 27.0 Anion Gap 5 BUN 16 Creatinine 0.51 L Estim Creat Clear Calc 40.83 Est GFR (MDRD) Af Amer 151 Est GFR (MDRD) Non-Af 125 BUN/Creatinine Ratio 31.3 H Glucose 129 H Calcium 9.5 POC Glucose 03/14/19 03/13/19 03/13/19 06:52 21:56 17:12 POC Glucose 140 H 141 H 146 H 03/13/19 12:00 POC Glucose 162 H Medical Necessity - Tobacco Use Smoking Status: Former smoker Assessment/Plan All Active Problems Respiratory failure with hypoxia (Acute) This is a 74 years old female patient presented to the emergency room because of worsening shortness of breath and she was found to have acute on chronic hypoxic respiratory failure due to acute COPD exacerbation as well as suspected pneumonia. #1 acute COPD exacerbation: She is on IV steroids, IV antibiotics, inhaled tobramycin and bronchodilators. Still requiring CPAP, dyspneic and tachypneic. She reported minimal improvement. ABG from yesterday reviewed, pH of 7.46, PCO2 of 36 and PO2 of 78. Chest x-ray without obvious acute infiltrate or consolidation, chronic findings noted. Respiratory panel for viruses were negative. Urine pneumococcal antigen was positive. Sputum culture revealed st enotrophomonas. Appreciate pulmonary recommendations. Plan to continue same treatment. #2 acute on chronic hypoxic respiratory failure: Secondary to above, patient has been on oxygen and CPAP at home. Plan as above. #3 suspected community-acquired pneumonia: Completed 3 days of IV Zithromax, now on IV cefepime and started on inhaled tobramycin by pulmonology. On chest x- ray, no obvious infiltrate or consolidation. Urine pneumococcal antigen was positive. Sputum culture revealed stenotrophomonas. Blood culture revealed staph epidermidis in 1 bottle which is probably contamination, the other blood culture showed no growth in 48 hours. Repeat blood cultures pending. Patient has been afebrile, minimal leukocytosis likely because of steroids. Plan as above. #4 COPD/alpha-1 antitrypsin deficiency: According to the patient's , she has been receiving alpha-1 antitrypsin infusions every week, last infusion was this past Wednesday. #5 chronic respiratory failure: On home oxygen and CPAP. Plan as above. #6 DVT prophylaxis: Subcu Lovenox. This note was generated with [employer] dictation software. It may contain incorrect words, spelling, and punctuation that were not noted in checking the note before signing. Code Visit Inpatient E&M: 72725 Subs Hosp L2
--- NOTE | 2019-03-14 09:40 | CASEMGMT ---
Social Work Note DAVID received call from Jasmin at [facility] stating referral form will need to be faxed to [facility] and provided fax number [phone]. DAVID faxed referral to [facility]. Jasmin Romo SECOND COOK AND BAKER, ENGINE TESTING SUPERVISOR
[2019-03-14] MEDS: Escitalopram Oxalate 10 MG Tablet PO (09:44)
[2019-03-14] MEDS: Senna/Docusate Sodium 1 Tablet 2 TABLET PO ×2 (09:44→21:35)
[2019-03-14] MEDS: Glucerna Shake 120 ML LIQUID PO ×4 (09:44→21:40)
[2019-03-14] MEDS: guaiFENesin 1,200 MG Tablet 1200 MG PO ×2 (09:45→21:35)
[2019-03-14] MEDS: Polyethylene Glycol 3350 17 GM PACKET PO (09:45)
[2019-03-14] MEDS: Enoxaparin 40 MG/0.4 ML Syringe SC (09:45)
[2019-03-14 12:11] LABS: Bedside Glucose 158 mg/dL (70-110)
--- NOTE | 2019-03-14 14:13 | CASEMGMT ---
Social Work Note SW placed a call to [facility] and spoke with RUTH Doran. Andreea states pt signed with Palliative Care. Plan: Home with Palliative Care Jasmin Romo TOP CLEANER, JEWELRY BEARING MAKER
[2019-03-14] MEDS: Insulin Lispro 100 UNIT/ML INSULN.PEN SC ×2 (16:45→21:55)
[2019-03-14 16:51] LABS: Bedside Glucose 177 mg/dL (70-110)
[2019-03-14] MEDS: LORazepam 0.5 MG Tablet PO (21:59)
[2019-03-15] VITALS (10 sets, daily range): BP systolic 151–164; BP diastolic 81–95; PULSE 98–112; RESP 18–20; TEMP 36.8–37.2; O2SAT 95–98
[2019-03-15 00:06] LABS: Bedside Glucose 264 mg/dL (70-110)
[2019-03-15] MEDS: MethylPREDNISolone 125 MG/2 ML Vial 60 MG IV ×2 (00:11→06:09)
[2019-03-15] MEDS: 0.9% NaCl Peripheral Flush Adult/Peds IV ×3 (00:12→21:24)
[2019-03-15] MEDS: Ipratropium/Albuterol Sulfate 3 ML AMPUL.NEB INHALATION ×4 (06:50→19:51)
[2019-03-15 07:00] LABS: Bedside Glucose 165 mg/dL (70-110)
[2019-03-15] MEDS: Tobramycin 80 MG/2 ML Vial 300 MG INHALATION ×2 (07:00→19:51)
[2019-03-15] MEDS: Insulin Lispro 100 UNIT/ML INSULN.PEN SC ×3 (07:01→21:38)
--- NOTE | 2019-03-15 08:51 | PN_ITS ---
Subjective: Chief complaint: Follow-up after admission for acute on chronic hypoxic respiratory failure due to COPD exacerbation and suspected pneumonia. Patient seen and examined. No acute events overnight. Today, she mentioned that it is the first day when she thinks that her breathing is getting better. At this time, she is on oxygen at 3 L. She is minimally tachycardic, blood pressure slightly elevated. Other vital signs are stable. - Physical Exam General: Alert, Oriented x3, Cooperative, - - Minimally short of breath HEENT: Atraumatic, PERRLA, EOMI, Normocephalic Oral: Moist Mucosa, No Gingival or Mucosal Lesions/ Ulcerations Neck: Supple, No JVD, Negative Carotid Bruits, Trachea Midline, Thyroid Normal Size and Texture Lungs: No rhonchi, No wheeze, No rales, Diminished, Short of Breath, - - Decrea sed breath sounds bilateral, otherwise clear. Cardiovascular: Regular rate, Regular Rhythm, Normal S1, Normal S2, Tachycardic Abdomen: Bowel Sounds Present, Soft, Non Tender, Non-Distended, No Hepato- splenomegaly Extremities: No clubbing, No cyanosis, No edema Skin: No rashes, No breakdown Lymphatic: No Cervical, Supraclavicular, or Inguinal Adenopathy Neurological: Cranial nerves II-XII grossly intact, Neuro grossly intact Psych/Mental Status: Normal Affect, Appropriate Vital Signs Temp Pulse Resp BP Pulse Ox 98.2 F 108 H 20 H 164/95 H 96 03/15/19 03:33 03/15/19 06:35 03/15/19 06:35 03/15/19 03:33 03/15/19 07:41 Oxygen Flow Rate (L/min) 3 Oxygen Delivery Method Bi-pap Weight: 126 lb 1.671 oz Body Mass Index (BMI) 22.3 Intake and Output for Last 24 Hours 03/13/19 03/14/19 03/15/19 23:59 23:59 23:59 Intake Total 2289.75 / 2689.75 2610 / 3210 840 / 840 Output Total 1750 / 1750 Balance 539.75 / 939.75 2610 / 3210 840 / 840 Microbiology Past 72 Hours 03/10/19 22:00 Blood Culture - Preliminary Blood Culture (Wb) - Anticubital Right No growth in 48 hours. 03/11/19 06:40 Gram Stain - Final Sputum, Expectorated/Coughed Respiratory Culture - Final Stenotrophomonas maltophilia 03/10/19 21:45 Urine Culture - Final Urine, Clean Catch Mixed Gram Positive Organisms 03/10/19 21:27 Bacteria Detection (PCR) - Final Blood Culture (Wb) - Anticubital Left Staphylococcus epidermidis Blood Culture - Preliminary Staphylococcus epidermidis POC Glucose 03/15/19 03/14/19 03/14/19 06:56 21:42 16:43 POC Glucose 165 H 264 H 177 H 03/14/19 12:05 POC Glucose 158 H Medical Necessity - Tobacco Use Smoking Status: Former smoker Assessment/Plan All Active Problems Respiratory failure with hypoxia (Acute) This is a 74 years old female patient presented to the emergency room because of worsening shortness of breath and she was found to have acute on chronic hypoxic respiratory failure due to acute COPD exacerbation as well as suspected pneumonia. #1 acute COPD exacerbation: Remained on IV steroids, IV antibiotics, inhaled tobramycin and bronchodilators. Today, she reported improvement of her symptoms, tolerating CPAP overnight and this morning, she has been on 3 L. Chest x-ray without obvious acute infiltrate or consolidation, chronic findings noted. Respiratory panel for viruses were negative. Urine pneumococcal antigen was positive. Sputum culture revealed stenotrophomonas. Plan: Taper down IV steroids, continue other treatments, anticipate discharge home tomorrow. #2 acute on chronic hypoxic respiratory failure: Secondary to above, patient has been on oxygen and CPAP at home. At this morning, she is on 3 L and she is feeling better. #3 suspected community-acquired pneumonia: Completed 3 days of IV Zithromax, now on IV cefepime and started on inhaled tobramycin by pulmonology. On chest x- ray, no obvious infiltrate or consolidation. Urine pneumococcal antigen was positive. Sputum culture revealed stenotrophomonas. Blood culture revealed staph epidermidis in 1 bottle which is probably contamination, the other blood culture showed no growth in 48 hours. Repeat blood cultures pending. Plan as above. #4 COPD/alpha-1 antitrypsin deficiency: According to the patient's , she has been receiving alpha-1 antitrypsin infusions every week, last infusion was this past Wednesday. #5 chronic respiratory failure: On home oxygen and CPAP. Plan as above. #6 DVT prophylaxis: Subcu Lovenox. This note was generated with Dragon dictation software. It may contain incorrect words, spelling, and punctuation that were not noted in checking the note before signing. Code Visit Inpatient E&M: 35486 Subs Hosp L2
--- NOTE | 2019-03-15 10:00 | CPS ---
patient's own trilogy
[2019-03-15] MEDS: Senna/Docusate Sodium 1 Tablet 2 TABLET PO ×2 (10:45→21:23)
[2019-03-15] MEDS: guaiFENesin 1,200 MG Tablet 1200 MG PO ×2 (10:45→21:23)
[2019-03-15] MEDS: Glucerna Shake 120 ML LIQUID PO ×3 (10:45→21:21)
[2019-03-15] MEDS: Enoxaparin 40 MG/0.4 ML Syringe SC (10:46)
[2019-03-15] MEDS: Escitalopram Oxalate 10 MG Tablet PO (10:46)
[2019-03-15] MEDS: Polyethylene Glycol 3350 17 GM PACKET PO (10:46)
[2019-03-15 11:30] LABS: Bedside Glucose 178 mg/dL (70-110)
--- NOTE | 2019-03-15 13:46 | CASEMGMT ---
RN CM in to discuss possible HHC at discharge. Patient is agreeable to HHC. RN CM provided list of HHC agencies and will follow-up with preferred choices. CM will continue to follow this patient and plan for a safe discharge.
[2019-03-15 16:55] LABS: Bedside Glucose 130 mg/dL (70-110)
--- NOTE | 2019-03-15 18:35 | PCM.PROGNOTE ---
- Physical Exam General: Alert, Oriented x3, Cooperative HEENT: Atraumatic, PERRLA, EOMI, Normocephalic Oral: Dry Mucosa Neck: Supple, No JVD, Negative Carotid Bruits Lungs: - - long exp phase, some increase in air mvt, pt has no cough, breathing w/out vent. no rales no wheeze, no rhonhci, no fx rub Cardiovascular: Regular rate, No murmurs Abdomen: Bowel Sounds Present, Soft, Non Tender Extremities: No edema, Capillary Refill Less than 3 Seconds Skin: No rashes, No breakdown Musculoskeletal: No Tenderness to Palpation of Joints or Extremities Neurological: Cranial nerves II-XII grossly intact Psych/Mental Status: Normal Affect, Appropriate Vital Signs Temp Pulse Resp BP Pulse Ox 98.9 F 103 H 20 H 151/81 H 98 03/15/19 16:30 03/15/19 16:30 03/15/19 16:30 03/15/19 16:30 03/15/19 16:30 Oxygen Flow Rate (L/min) 3 Oxygen Delivery Method Nasal Cannula Weight: 57.2 kg Body Mass Index (BMI) 22.3 Intake and Output for Last 24 Hours 03/13/19 03/14/19 03/15/19 23:59 23:59 23:59 Intake Total 2289.75 / 2689.75 2610 / 3210 1440 / 1440 Output Total 1750 / 1750 Balance 539.75 / 939.75 2610 / 3210 1440 / 1440 Microbiology Past 72 Hours 03/13/19 12:52 Blood Culture - Preliminary Blood Culture (Wb) - Anticubital Left No growth in 48 hours. 03/10/19 22:00 Blood Culture - Preliminary Blood Culture (Wb) - Anticubital Right No growth in 48 hours. 03/11/19 06:40 Gram Stain - Final Sputum, Expectorated/Coughed Respiratory Culture - Final Stenotrophomonas maltophilia POC Glucose 03/15/19 03/15/19 03/15/19 16:48 11:21 06:56 POC Glucose 130 H 178 H 165 H 03/14/19 21:42 POC Glucose 264 H Medical Necessity - Tobacco Use Smoking Status: Former smoker Assessment/Plan All Active Problems Respiratory failure with hypoxia (Acute) COPD, alpha-1 antitrypsin deficiency, chronic respiratory failure with acute exacerbation requiring noninvasive ventilation Significant improvement over the last 48 hours with the use of IV steroids I would continue IV Solu-Medrol at 40 mg every 8 and then discharged on 40 mg daily for about 14 days I plan to have the patient follow-up with me in the office 1 week from discharge At this point I do not recommend advancing the patient to hospice but palliative care is reasonable This patient has 2-3 exacerbations a year and I believe that she has recovered for the most part from this particular one. In terms of alpha-1 antitrypsin disease it is not unreasonable to d continue therapy at this point I am concerned about nutrition and do recommend the use of supplements For now continue high flow O2 with noninvasive ventilation at home but I do recommend replacement of the mask and the tubing that was used in the hospital setting I do recommend a flu shot Continue the same regimen as on admission, consider quinolones for the next week in addition to nebulized tobramycin 300 twice daily in order to stabilize the patient
[2019-03-15] MEDS: Acetaminophen 325 MG Tablet 650 MG PO (21:33)
[2019-03-15] MEDS: LORazepam 0.5 MG Tablet PO (21:34)
[2019-03-15 21:50] LABS: Bedside Glucose 224 mg/dL (70-110)
[2019-03-16 02:48] VITALS: BP 157/76; PULSE 95; RESP 20; TEMP 36.7; O2SAT 98
[2019-03-16] MEDS: 0.9% NaCl Peripheral Flush Adult/Peds IV (06:31)
[2019-03-16 07:00] LABS: Bedside Glucose 112 mg/dL (70-110)
[2019-03-16] MEDS: Ipratropium/Albuterol Sulfate 3 ML AMPUL.NEB INHALATION ×2 (07:05→10:48)
[2019-03-16] MEDS: Tobramycin 80 MG/2 ML Vial 300 MG INHALATION (07:05)
[2019-03-16 07:15] VITALS: PULSE 109; RESP 21
[2019-03-16] MEDS: Escitalopram Oxalate 10 MG Tablet PO (08:00)
[2019-03-16] MEDS: Enoxaparin 40 MG/0.4 ML Syringe SC (08:01)
[2019-03-16] MEDS: guaiFENesin 1,200 MG Tablet 1200 MG PO (08:01)
[2019-03-16 08:05] VITALS: BP 136/78; PULSE 106; RESP 18; TEMP 36.7; O2SAT 96
[2019-03-16 08:31] VITALS: O2SAT 95
--- NOTE | 2019-03-16 09:14 | DCINST_ITS ---
You will use the following diet at home:: Regular Your food should be the consistency of: Regular Discharge Activity: Return to Normal Activity Weight Bearing Status: Weight bearing as tolerated Call your doctor if you observe: Fever of 101 or Higher, Shortness of breath, Dizziness, Fainting spells, Chest pain, Increased palpitations (irregular heartbeat), Uncontrolled pain Allergies/Adverse Reactions: Allergies latex Allergy (Verified 02/28/16 18:50) Rash Medications to take at Discharge Albuterol Aerosols [Ventolin Aerosols] 2.5 mg INHALATION Q4H PRN PRN 02/28/16 Albuterol Inhaler [Ventolin Hfa] 1 - 2 puff INHALATION Q4H PRN PRN 02/28/16 Escitalopram Oxalate [Lexapro] 10 mg PO DAILY 02/28/16 Roflumilast [Daliresp] 500 mcg PO DAILY 02/28/16 Fluticasone/Umeclidin/Vilanter [Trelegy Ellipta 100-62.5-25] 1 inhaler INHALATION DAILY 03/10/19 Prednisone 10 mg PO DAILY #30 tab 03/16/19 Tobramycin/Nebulizer [Tobramycin Yemi 300 mg/5 ml] 300 mg IH BID #14 ampul.neb 03/16/19 levoFLOXacin tablet [Levaquin tablet] 750 mg PO DAILY #7 tab 03/16/19 The following prescriptions were given: levoFLOXacin tablet [Levaquin tablet] 750 mg PO DAILY #7 tab Prescription Printed Prednisone 10 mg PO DAILY #30 tab Prescription Printed Tobramycin/Nebulizer [Tobramycin Yemi 300 mg/5 ml] 300 mg IH BID #14 ampul.neb Prescription Printed Primary Care Physician: Nuno Roberts MD [Primary Care Provider] - Please follow up with your Primary Care Physician in: 2-3 weeks. Test Results: Test results from this visit will be discussed in further detail at your follow- up appointment, if applicable. Please Follow Up With: Riley Taylor MD When: 1 week.
--- NOTE | 2019-03-16 10:51 | CASEMGMT ---
RUTH ELLIS in to discuss choice for HHC. Patient states she would like [facility]. RUTH ELLIS sent referral to [facility] and they are able to accept the patient with start of care for tomorrow. RUTH ELLIS updated the patient and voiced understanding. Patient had no further needs or concerns at this time. Discharge planned for today with HHC, family support, and follow-up plans in place.
[2019-03-16 10:52] VITALS: PULSE 108; RESP 21
--- NOTE | 2019-03-16 12:41 | DS.PCM_ITS ---
Discharge Date and Diagnosis Date of Admission: 03/11/19 Date of Discharge: 03/16/19 - Primary Discharge Diagnosis #1 acute COPD exacerbation. #2 acute on chronic hypoxic respiratory failure. #3 suspected community-acquired pneumonia. - Secondary Discharge Diagnosis Chronic Problems [id number] deficiency (Chronic) COPD (chronic obstructive pulmonary disease) (Chronic) Hospital Course and Treatment Imaging Results: Clinical Impression(s) from Imaging Studies Chest X-Ray 03/10/19 21:45 IMPRESSION: Severe hyperexpansion and diffuse emphysematous changes. Stable chronic fibrosis of the lingula. Negative for new consolidation, focal atelectasis or a substantial pleural effusion. Normal cardiac size. Atherosclerotic changes of the thoracic aorta. Electronically Signed: Shila Bocanegra MD at 22:07 EDT , Service support , Abdomen/Pelvis CT 03/10/19 22:44 IMPRESSION: Severe fibrotic COPD. Cholelithiasis. Distended gallbladder. Suboptimal evaluation of the GI tract without oral contrast. Cannot exclude enteritis or colitis. Electronically Signed: Lacne White MD at 23:33 EDT , Service support , Chest X-Ray 03/12/19 02:21 IMPRESSION: Chronic fibrotic and emphysematous changes in the lungs. No evidence for acute cardiopulmonary pathology. Electronically Signed: Blair Irizarry MD at 4:29 EDT , Service support , Dr. Taylor, pulmonology. Operations: None Procedures: None Summary of Care Provided: Patient seen and examined on the day of discharge and appeared to be stable to be discharged home. She reported significant improvement of her shortness of breath and she is feeling much better. Her vital signs are stable, pulse ox is maintained on 3 L. She has been tolerating CPAP overnight. The patient is a 74 year old F presented to the emergency department because of worsening shortness of breath and she was found to have acute COPD exacerbation complicated by acute on chronic hypoxic respiratory failure and also found to have suspected community-acquired pneumonia. Her chest x-ray showed no acute findings and there was no obvious infiltrate or consolidation. Urine pneumococcal antigen was positive. Patient was treated with IV steroids, IV antibiotics, inhaled tobramycin as well as bronchodilators. Dr. Taylor consulted and recommended to start patient on inhaled tobramycin. Her blood culture revealed staph epidermidis and one positive which considered to be a contamination. The other blood culture bottle showed no growth in 5 days. Blood culture repeated and showed no growth in 48 hours. Patient remained afebrile throughout admission. Routine blood work was unremarkable. With aggressive and maximum treatment of CPAP, IV steroids, IV antibiotics and inhaled tobramycin as well as bronchodilators, patient symptoms improved very slowly. After she was started on inhaled tobramycin, symptoms improved more and patient returned back to her baseline. Patient discharged home in a stable medical condition, discharged on tapering course of prednisone, Levaquin 750 mg p.o. daily for 1 week, inhaled tobramycin twice daily according to Dr. Taylor recommendations, instructed to use oxygen and CPAP at the same previous settings at home, continued on her previous medications without any changes, plan to follow-up with pulmonology in 1 week, follow-up with PCP in 2-3 weeks. - Physical Exam General: Alert, Oriented x3, Cooperative, - HEENT: Atraumatic, PERRLA, EOMI, Normocephalic Oral: Moist Mucosa, No Gingival or Mucosal Lesions/ Ulcerations Neck: Supple, No JVD, Negative Carotid Bruits, Trachea Midline, Thyroid Normal Size and Texture Lungs: Clear to auscultation, No rhonchi, No wheeze, No rales, Diminished Cardiovascular: Regular rate, Regular Rhythm, Normal S1, Normal S2, PMI Normal Abdomen: Bowel Sounds Present, Soft, Non Tender, Non-Distended, No Hepato- splenomegaly Extremities: No clubbing, No cyanosis, No edema Skin: No rashes, No breakdown Lymphatic: No Cervical, Supraclavicular, or Inguinal Adenopathy Neurological: Cranial nerves II-XII grossly intact, Neuro grossly intact Psych/Mental Status: Normal Affect, Appropriate, Alert and oriented to time, place, person, mood and affect Vital Signs Temp Pulse Resp BP Pulse Ox 98.1 F 108 H 21 H 136/78 H 95 03/16/19 08:05 03/16/19 10:52 03/16/19 10:52 03/16/19 08:05 03/16/19 08:31 Oxygen Flow Rate (L/min) 3 Oxygen Delivery Method Nasal Cannula Weight: 126 lb 1.671 oz Body Mass Index (BMI) 22.3 Intake and Output for Last 24 Hours 03/14/19 03/15/19 03/16/19 23:59 23:59 23:59 Intake Total 2610 / 3210 2190 / 2430 240 / 240 Balance 2610 / 3210 2190 / 2430 240 / 240 Microbiology Past 72 Hours 03/10/19 21:27 Bacteria Detection (PCR) - Final Blood Culture (Wb) - Anticubital Left Staphylococcus epidermidis Blood Culture - Final Staphylococcus epidermidis 03/10/19 22:00 Blood Culture - Final Blood Culture (Wb) - Anticubital Right No growth in 5 days. 03/13/19 12:52 Blood Culture - Preliminary Blood Culture (Wb) - Anticubital Left No growth in 48 hours. 03/11/19 06:40 Gram Stain - Final Sputum, Expectorated/Coughed Respiratory Culture - Final Stenotrophomonas maltophilia POC Glucose 03/16/19 03/15/19 03/15/19 06:35 21:37 16:48 POC Glucose 112 H 224 H 130 H Discharge Activity: Return to Normal Activity Weight Bearing Status: Weight bearing as tolerated Call your doctor if you observe: Fever of 101 or Higher, Shortness of breath, Dizziness, Fainting spells, Chest pain, Increased palpitations (irregular heartbeat), Uncontrolled pain Home Medications: Medications to take at Discharge Albuterol Aerosols [Ventolin Aerosols] 2.5 mg INHALATION Q4H PRN PRN 02/28/16 Albuterol Inhaler [Ventolin Hfa] 1 - 2 puff INHALATION Q4H PRN PRN 02/28/16 Escitalopram Oxalate [Lexapro] 10 mg PO DAILY 02/28/16 Roflumilast [Daliresp] 500 mcg PO DAILY 02/28/16 Fluticasone/Umeclidin/Vilanter [Trelegy Ellipta 100-62.5-25] 1 inhaler INHALATION DAILY 03/10/19 Prednisone 10 mg PO DAILY #30 tab 03/16/19 Tobramycin/Nebulizer [Tobramycin Yemi 300 mg/5 ml] 300 mg IH BID #14 ampul.neb 03/16/19 levoFLOXacin tablet [Levaquin tablet] 750 mg PO DAILY #7 tab 03/16/19 Following Prescrptions Were Given to Patient: levoFLOXacin tablet [Levaquin tablet] 750 mg PO DAILY #7 tab Prescription Printed Prednisone 10 mg PO DAILY #30 tab Prescription Printed Tobramycin/Nebulizer [Tobramycin Yemi 300 mg/5 ml] 300 mg IH BID #14 ampul.neb Prescription Printed Primary Care Physician: Nuno Roberts MD [Primary Care Provider] - Please follow up with your Primary Care Physician in: 2-3 weeks. Please Follow Up With: Riley Taylor MD When: 1 week. Please Follow Up With: Nuno Roberts MD When: 2-3 weeks Disposition: Home with Home Health Minutes spent on discharge:: 32 Patient Condition:: Stable Medical Necessity - Tobacco Use Smoking Status: Former smoker Meaningful Use Info Meaningful Use Diagnoses (Choose all that apply): None applicable Code Visit Inpatient E&M: 11236 Disch Hosp
--- NOTE | 2019-03-17 11:22 | CASEMGMT ---
RUTH CM Discharge Follow-up Phone Call: NICOL: Martita Strata: 4 Call Date: 03/17/19 Discharge Date: 03/16/19 Time of Call: 1120 Duration: 0 ? Admitting Diagnosis: COPD exac, Pneumonia, A/C Resp failure. Discharged follow-up call attempted to pt's cell phone. Identifying voicemail received and message left requesting a return call if questions or concerns. Debbie Valdivia RN
== END 2019-03-16 12:30 | disposition home health service (06) | DRG 190 ==
LOC: ED 20:54 → MS3 23:45
PROVIDERS: Internal Medicine; Admitting Provider Internal Medicine; Emergency Provider Emergency Medicine; Family Provider Family Medicine; PCP Family Medicine; Visit Provider Hospitalist
DX: J44.1 Chronic obstructive pulmonary disease with (acute) exacerbation (principal); J96.21 Acute and chronic respiratory failure with hypoxia; J18.9 Pneumonia, unspecified organism; J44.0 Chronic obstructive pulmonary disease with (acute) lower respiratory infection; K80.20 Calculus of gallbladder without cholecystitis without obstruction; E88.01 Alpha-1-antitrypsin deficiency; Z87.891 Personal history of nicotine dependence; Z99.81 Dependence on supplemental oxygen
CPT/HCPCS: 36415; 36600; 71045; 71046; 74177; 80048; 80053; 81001; 82803; 82962; 83605; 83735; 84443; 84484; 85025; 85610; 85730; 87040; 87070; 87077; 87086; 87088; 87149; 87186; 87205; 87449; 87633; 87641; 93005; 94002; 94640; 94667; 94668; 97110; 97161; 97166; 97530; 97535; 97802; 97803; 99285; J7030; J7050; Q9967; A4216

== ENCOUNTER → 2021-01-08 | Outpatient (CLI) | payer MEDICARE, OTHER, SELFPAY ==
[2019-03-11 00:59] VITALS: BMI 22.3
== END | disposition home or self-care (01) ==
LOC: LABSPEC 13:11
PROVIDERS: PCP Family Medicine; Visit Provider Internal Medicine Pulmonary Disease
DX: R05 Cough (principal)
CPT/HCPCS: 87070; 87205